=== PATIENT | female | born 1990 | race Caucasian/White ===

== ENCOUNTER 2019-06-30 09:18 | Day surgery (SDC) | payer MEDICARE, OTHER ==
[~2019-06-30] VITALS: Ht 152.4 cm; Wt 75.0 kg
[~2019-06-30 09:18] MED LIST: ALBU2.5V5 NEB; ALBU2.5V8 INH; AMOX1TAB61 PO; ARIP20TA5 PO; ASEN5TAB7 SL; ASPI325T8 PO; AZIT500T PO; CALC667C6 PO; CARV12.511 PO; CYCL10TA2 PO; DILT240C32 PO; DILT240C66 PO; DOCU-109 PO; ERYT250T16 PO; ESCITALOPRAM OX10 MG PO; ESCITALOPRAM OX20 MG PO; FERR325T58 PO; FEXO180T81 PO; FLUT1DIS3 IH; FURO80TA72 PO; Fish Oil PO; GABA300C18 PO; HYDR-2145 PO; HYDR-2868 PO; HYDR-2869 PO; HYDROmorphone 2 MG/ML VIAL IV PRN; Humalog; INSU100C4 SQ; INSU100I13 SQ; INSU100V3 SQ; IV RINGERS,LACTATED 1000ML 1,000 ML IV SCH; LABE100T5 PO; LAMO100T5 PO; LAMO100T8 PO; LAMO200T3 PO; LIDO700A4 TP; LIDOCAINE 1% PF 2 ML VIAL. ID PRN; LURA80TA PO; METO10TA PO; METO5TAB4 PO; MORPHINE SULFATE 2 MG/ML VIAL. IV PRN; MULT-206 PO; NORG1TAB39 PO; NORG1TAB7 PO; OMEG300C PO; ONDA4TAB7 PO; ONDANSETRON PF 4 MG/2 ML VIAL. IV PRN; OXYC1TAB15 PO; OXYC20TA34 PO; POLY17PO29 PO; PROCHLORPERAZINE 10 MG/2 ML VIAL. IV PRN; SCOP1PAT11 TD; SODI650T PO; TRAM50TA PO; TRAZ-86 PO; VALS320T13 PO; VITA0.8T2 PO; [UNRECOGNIZED DRUG - OTHER]; fentaNYL PF VIAL 100 MCG/2 ML VIAL IV PRN
[2019-06-30] MEDS ORDERED: ceFAZolin 2GM PREMIX 2 GM/50 ML BAG IV ONE (10:00)
[2019-06-30] MEDS ORDERED: LIDOCAINE 2% PF 5 ML VIAL. ONE (10:03)
[2019-06-30] MEDS ORDERED: ROCURONIUM 50 MG/5 ML VIAL. ONE (10:03)
[2019-06-30] MEDS ORDERED: DEXAMETHASONE SOD PHOS 4 MG/ML VIAL ONE ×2 (10:03→11:50)
[2019-06-30] MEDS ORDERED: PROPOFOL 20 ML IV ONE (10:03)
[2019-06-30] MEDS ORDERED: ONDANSETRON PF 4 MG/2 ML VIAL. ONE (10:03)
[2019-06-30] MEDS ORDERED: fentaNYL PF VIAL 100 MCG/2 ML VIAL ONE ×3 (10:03→12:33)
[2019-06-30] MEDS ORDERED: MIDAZOLAM HCL/PF 2 MG/2 ML VIAL. ONE (10:04)
[2019-06-30 10:30] LABS: CALCIUM 7.7 mg/dL (8.5-10.1); CREATININE 3.7 mg/dL (0.6-1.0); GFR 14.4; POTASSIUM 4.7 mmol/L (3.5-5.1)
[2019-06-30] MEDS ORDERED: IV NORMAL SALINE 1000ML BAG 1,000 ML IV SCH (10:30)
[2019-06-30] MEDS ORDERED: HEPARIN PF 500 UNIT/5 ML DISP.SYRIN. ONE (10:32)
[2019-06-30] MEDS ORDERED: HEPARIN for IV BOLUS 10,000 UNIT/10 ML VIAL. ONE (10:33)
[2019-06-30] MEDS ORDERED: NEOSTIGMINE METHYLSULFATE 5 MG/5 ML SYRINGE. ONE (11:46)
[2019-06-30] MEDS ORDERED: GLYCOPYRROLATE 1 MG/5 ML VIAL. ONE (11:46)
[2019-06-30] MEDS ORDERED: DESFLURANE 61 TO 120 MINUTES IH ONE (11:50)
--- NOTE | 2019-06-30 12:27 | PDOC4 ---
Operative Note Operative Note OPERATIVE NOTE: PREOPERATIVE DIAGNOSIS: Renal failure. POSTOPERATIVE DIAGNOSIS: Renal failure. PROCEDURE: Laparoscopic peritoneal dialysis catheter placement. SURGEON: Renny Espinal MD ANGLE ROLL OPERATOR: Nida DURAN ANESTHESIA: General. ESTIMATED BLOOD LOSS: 10 mL. SPECIMENS: None. DRAINS: None. COMPLICATIONS: None. INDICATIONS: The patient is a 29-year-old female who was referred for placement of a peritoneal dialysis catheter due to progressive renal failure. The details and risks of surgery were discussed with the patient. The risks of surgery include bleeding, infection, visceral injury, pain, anesthetic risk, potential need for additional surgery or procedure. In addition, the patient is aware of the potential for catheter malfunction or dysfunction and possibility of needing revision, replacement, or removal of the catheter. They understand all this and would like to proceed. DESCRIPTION OF PROCEDURE: The patient was brought to the operating room and placed supine on the operating table. General anesthesia was performed. The abdomen was prepped with ChloraPrep and draped in a standard surgical manner. A small incision was made in the patient's right upper quadrant through which a visualized 5-mm trocar was inserted. A pneumoperitoneum was then created and the laparoscope was introduced. Initial inspection showed no significant adhesions or any other gross abnormalities. Using the placement template, the left abdomen was marked with a planned catheter exit site in the left abdomen. A small incision was made to the left of the patient's midline at the marked location for the exit site of the cuff. An 8-mm trocar was inserted through this location. The coiled portion of the lower catheter was then inserted into the pelvis under direct visualization. The cuff was positioned in the rectus musculature. The coiled portion rested well in the inferior mid pelvis. The pneumoperitoneum was then relieved. An incision was then made in the left abdomen at the planned exit site. The proximal portion of the catheter was tunnelled subcutaneously to the exit site. The catheter was then assembled to IV tubing and tested by infusing a liter of saline. The saline passed easily into the abdomen and the bag was placed on the floor. Nearly all of the saline readily was retrieved with prompt flow. The abdominal cavity was then reinsufflated and the laparoscope was reintroduced showing no change in the catheter position and the cuff remained in the rectus. The pneumoperitoneum was relieved and the ports were removed. The catheter was then assembled to the connector tubing as per the dialysis instructions. All the incision sites were closed with 4-0 Monocryl. Steri-Strips and sterile dressing were then applied. The patient tolerated procedure well and was sent to the recovery room in stable condition. At the end of the case all counts were correct. RENNY ESPINAL MD Jun 30, 2019 12:27
--- NOTE | 2019-06-30 12:30 | DISCH ---
DISCHARGE INSTRUCTIONS Condition on Discharge Condition on Discharge: Stable Activity After Discharge Activity Instructions for Disc: Other, see below (No lifting over 20 lbs X 2 weeks) Diet after Discharge Diet after Discharge: Regular Wound Incision Care Wound/Incision Care: Other, see below (keep dressing clean and dry) Follow-Up Follow up with: Follow with dialysis center NESTOR ESPINAL MD Jun 30, 2019 12:29
[2019-06-30] MEDS: fentaNYL PF VIAL 100 MCG/2 ML VIAL IV PRN ×2 (12:37→12:45)
[2019-06-30] MEDS ORDERED: HYDR-3164 PO (12:57)
[2019-06-30 13:10] VITALS: BP 148/75
[2019-06-30] MEDS ORDERED: HYDROcodone/APAP 5/325MG 1 TAB TABLET PO ONE (13:15)
[2019-06-30] MEDS ORDERED: INSULIN LISPRO 100 UNIT/ML 3ML VIAL for OP,RR ONLY. SQ PRN (13:15)
[2019-06-30] MEDS ORDERED: HEPARIN PF 500 UNIT/5 ML DISP.SYRIN. IVP ONE (13:45)
== END 2019-06-30 14:00 | disposition home or self-care (01) ==
LOC: SURG 09:18
PROVIDERS: ATTEND Surgery
DX: I12.0 Hypertensive chronic kidney disease with stage 5 chronic kidney disease or end stage renal disease (principal); E11.22 Type 2 diabetes mellitus with diabetic chronic kidney disease; N18.6 End stage renal disease; J45.909 Unspecified asthma, uncomplicated; F31.9 Bipolar disorder, unspecified; Z90.49 Acquired absence of other specified parts of digestive tract; Z79.84 Long term (current) use of oral hypoglycemic drugs; Z90.710 Acquired absence of both cervix and uterus; Z98.890 Other specified postprocedural states
CPT/HCPCS: 36415; 49324; 80048; 82962; A7015; J0696; J1100; J1644; J2001; J2405; J2704; J2710; J3010; J3490; J7120; J2250

== ENCOUNTER → 2020-03-19 | Outpatient (CLI) | payer MEDICARE, OTHER ==
[2019-07-03 12:11] VITALS: BP 147/67
[~2020-03-19] MED LIST changes: +CRESTOR40 MG PO; +HYDR-3164 PO; -HYDROmorphone 2 MG/ML VIAL IV PRN; -IV RINGERS,LACTATED 1000ML 1,000 ML IV SCH; -LIDOCAINE 1% PF 2 ML VIAL. ID PRN; -MORPHINE SULFATE 2 MG/ML VIAL. IV PRN; +MULT-121 PO; +OLAN7.5T3 PO; -ONDANSETRON PF 4 MG/2 ML VIAL. IV PRN; -PROCHLORPERAZINE 10 MG/2 ML VIAL. IV PRN; +TRAZ-123 PO; -TRAZ-86 PO; -fentaNYL PF VIAL 100 MCG/2 ML VIAL IV PRN
== END ==
LOC: LAB 08:30
PROVIDERS: ATTEND Surgery
DX: Z01.812 Encounter for preprocedural laboratory examination (principal); Z20.828 Contact with and (suspected) exposure to other viral communicable diseases
CPT/HCPCS: U0003-CS

== ENCOUNTER 2020-03-22 08:59 | Day surgery (SDC) | payer MEDICARE, OTHER ==
[~2020-03-22] VITALS: Ht 157.5 cm; Wt 72.5 kg
[~2020-03-22 08:59] MED LIST changes: +DEXAMETHASONE SOD PHOS 4 MG/ML VIAL ONE; +HYDROmorphone 2 MG/ML VIAL IV PRN; +INSULIN LISPRO 100 UNIT/ML 3ML VIAL for OP,RR ONLY. SQ PRN; +LIDOCAINE 1% PF 2 ML VIAL. ID PRN; +LIDOCAINE 2% PF 5 ML VIAL. ONE; +MORPHINE SULFATE 2 MG/ML VIAL. IV PRN; +ONDANSETRON PF 4 MG/2 ML VIAL. IV PRN; +ONDANSETRON PF 4 MG/2 ML VIAL. ONE; +PROCHLORPERAZINE 10 MG/2 ML VIAL. IV PRN; +PROPOFOL 10 MG/ML (20ML) VIAL. IV ONE; +fentaNYL PF VIAL 100 MCG/2 ML VIAL IV PRN; +fentaNYL PF VIAL 100 MCG/2 ML VIAL ONE
[2020-03-22] MEDS ORDERED: IV NORMAL SALINE 1000ML BAG 1,000 ML IV SCH ×2 (09:00→10:00)
[2020-03-22 10:37] LABS: CREATININE 6.6 mg/dL (0.6-1.0); GFR 7.3
[2020-03-22 10:47] LABS: CALCIUM 5.8 mg/dL (8.5-10.1); POTASSIUM 2.6 mmol/L (3.5-5.1)
[2020-03-22] MEDS ORDERED: LIDOCAINE 1%/EPI 1:100,000 20 ML VIAL. ONE (11:15)
[2020-03-22] MEDS ORDERED: POTASSIUM CHLORIDE 20MEQ 100 ML IV SCH (11:15)
[2020-03-22] MEDS ORDERED: MIDAZOLAM HCL/PF 2 MG/2 ML VIAL. ONE (12:17)
--- NOTE | 2020-03-22 12:43 | PDOC4 ---
Operative Note Operative Note Operative Note: Preoperative Diagnosis: Right abdominal wall nodule Postoperative Diagnosis: Same Procedure: Excision of right abdominal wall nodule, 2 X 1 cm Surgeon: Murphy Model And Pattern Supervisor: Ev DURAN Anesthesia: General EBL: 10 mL Specimen: Abdominal wall nodule to pathology Drains: None Complications: None Indication: The patient is a 30-year-old female who was referred due to abdominal pain. Evaluation does identify a small subcutaneous nodule in the right abdominal wall. Clinically most consistent with fatty necrosis. She states that it is symptomatic and requests excision. The details and risks of surgery were discussed. The risks include bleeding, infection, recurrence, pain, anesthetic risk, potential need for additional surgery procedure. She understands and would like to proceed. Description: The patient was taken the operating room and placed supine on the operating table. General anesthesia was performed. The right abdomen was prepped with ChloraPrep and draped in a standard surgical manner. An incision was made in the skin overlying the mass with a scalpel. Cautery dissection was carried down into the subcutaneous tissues. The nodule was readily identified and mobilized from the surrounding fat with cautery. The mass was fully excised and measured 2 x 1 cm. The mass was sent to pathology for evaluation. Hemostasis was achieved with cautery. The subcutaneous tissue was closed with 3-0 Vicryl and skin approximated with 4-0 Monocryl. A sterile dressing was applied. The patient tolerated the procedure well and sent to the covering room in stable condition. At the end the case all counts were correct. NESTOR ESPINAL MD Mar 22, 2020 12:43
--- NOTE | 2020-03-22 12:46 | DISCH ---
DISCHARGE INSTRUCTIONS Condition on Discharge Condition on Discharge: Stable Activity After Discharge Activity Instructions for Disc: Activity as tolerated Diet after Discharge Diet after Discharge: Renal Dialysis Wound Incision Care Wound/Incision Care: Other, see below (keep dressing clean and dry X 72 hours, may then remove and shower) Follow-Up Follow up with: Dr Espinal in office in 2 weeks, call for appt [phone] NESTOR ESPINAL MD Mar 22, 2020 12:46
[2020-03-22 13:45] VITALS: BP 11/73
[2020-03-22] MEDS ORDERED: HYDR-3164 PO (14:00)
[2020-03-22] MEDS ORDERED: HYDROcodone/APAP 5/325MG 1 TAB TABLET PO ONE (14:15)
[2020-03-22] MEDS ORDERED: HEPARIN PF 500 UNIT/5 ML DISP.SYRIN. IVP ONE (14:15)
--- NOTE | 2020-03-23 15:07 | PATHOLOGY ---
[facility] Accession Number: [id number] . 01 Material submitted: . abdomen - ABDOMINAL WALL NODULE. Modifiers: wall . 01 Clinical history: . ABDOMINAL WALL MASS . 02 Diagnosis: Fibroadipose tissue, abdominal wall nodule excision: - Organizing hematoma, with adjacent fat necrosis. (JPM:alessandra 03/23/2020) QMS 03/23/2020 1400 Local . 02 Comment: There is no evidence of malignancy. (JPM:alessandra; 03/23/2020) . 02 Electronically signed: . Roni Alan MD, Pathologist NPI- [id number] . 01 Gross description: . The specimen is received in formalin, labeled "Shaun Blockburger, abdominal wall nodule". Received is a segment of shaggy yellow-briscoe lobulated tissue measuring 3.8 x 2.5 x 1.1 cm in greatest dimensions. The surgical margin is inked. Sectioning reveals a cystic structure measuring 0.8 cm in maximum dimensions filled with blood-tinged fluid. The remaining cut surfaces display a bright yellow, lobulated appearance. The entire cystic structure submitted in cassette A1. Additional outside sales representative sections are submitted in cassette A2. (CAA; 03/22/2020) QAC/QAC 03/22/2020 1736 Local . 02 Pathologist provided ICD-10: R19.09 . 02 CPT . 446665 Specimen Comment: A courtesy copy of this report has been sent to [phone] Specimen Comment: [id number] Specimen Comment: Report sent to / DR CHEN Performed at: [address], [place], [place] [id number] MD Nazario Mota MD Phone: [phone] Performed at: 02 [facility] [address] [place] [id number] MD Roni Alan MD Phone: [phone]
== END 2020-03-22 14:40 | disposition home or self-care (01) ==
LOC: SURG 08:59
PROVIDERS: ATTEND Surgery
DX: R19.00 Intra-abdominal and pelvic swelling, mass and lump, unspecified site (principal); Z88.8 Allergy status to other drugs, medicaments and biological substances; Z87.891 Personal history of nicotine dependence; Z79.899 Other long term (current) drug therapy
CPT/HCPCS: 22902; 36415; 80048; 82962; 84132; A7015; J0690; J1100; J1642; J2250; J2405; J2704; J3010; J3480; J3490

== ENCOUNTER 2020-08-09 12:32 | Inpatient (IN) | payer MEDICARE, OTHER ==
[~2020-08-09] VITALS: Ht 154.9 cm; Wt 72.0 kg
[~2020-08-09 12:32] MED LIST changes: +AMIT50TA PO; +ASCO500C PO; +CHOL500050 PO; +CLON0.5T4 PO; -DEXAMETHASONE SOD PHOS 4 MG/ML VIAL ONE; +DULO60CA6 PO; -ERYT250T16 PO; +ERYT250T84 PO; -HYDROmorphone 2 MG/ML VIAL IV PRN; -INSULIN LISPRO 100 UNIT/ML 3ML VIAL for OP,RR ONLY. SQ PRN; +LAMO25TA5 PO; -LIDOCAINE 1% PF 2 ML VIAL. ID PRN; -LIDOCAINE 2% PF 5 ML VIAL. ONE; +LINA5TAB PO; +METO-239 PO; +METO25TA4 PO; +MIDO5TAB4 PO; +MILK175T PO; -MORPHINE SULFATE 2 MG/ML VIAL. IV PRN; -ONDANSETRON PF 4 MG/2 ML VIAL. IV PRN; -ONDANSETRON PF 4 MG/2 ML VIAL. ONE; +OXYC5CAP PO; +PANT40TA77 PO; +POTA20TA4 PO; +PROC25SU RC; -PROCHLORPERAZINE 10 MG/2 ML VIAL. IV PRN; -PROPOFOL 10 MG/ML (20ML) VIAL. IV ONE; +THIA100T22 PO; +TURM538C PO; +ZINC50TA10 PO; -fentaNYL PF VIAL 100 MCG/2 ML VIAL IV PRN; -fentaNYL PF VIAL 100 MCG/2 ML VIAL ONE
[2020-08-09] MEDS ORDERED: IV NORMAL SALINE 1000ML BAG 1,000 ML IV ONE (14:00)
--- NOTE | 2020-08-09 14:17 | RAD ---
INDICATION: Reason: CHEST PAIN ucg first 1:55 er 6 / Spl. Instructions: / History: COMPARISON: June 19, 2020 FINDINGS: Single view of chest obtained. Hypoexpanded exam. Cardiac silhouette is near the upper limits of normal in size. Linear opacity agai n seen at the left lung base without a new region of consolidation IMPRESSION: * Linear opacity at left lung base again seen and can be from atelectasis or scarring. No new region of consolidation. Electronically signed by: Harmeet Bustillo MD (08/09/2020 2:15 PM) [id number]
[2020-08-09 14:31] LABS: BASO % 0 % (0-3); EOS % 0 % (0-3); HEMATOCRIT 35.2 % (36.0-47.0); HEMOGLOBIN 11.6 g/dL (12.0-15.5); LYMPH % 9 % (24-48); MEAN CORPUSCULAR HEMOGLOBIN 30 pg (25-35); MEAN CORPUSCULAR HGB CONC 33 g/dL (31-37); MEAN CORPUSCULAR VOLUME 90 fL (79-100); MONO # 0.5 x10^3/uL (0.0-1.1); MONO % 5 % (0-9); NEUT # 9.7 x10^3/uL (1.8-7.7); NEUT % 86 % (31-73); PLATELET COUNT 278 x10^3/uL (140-400); RED CELL DISTRIBUTION WIDTH 14.6 % (11.5-14.5); WHITE BLOOD COUNT 11.3 x10^3/uL (4.0-11.0)
[2020-08-09 14:42] LABS: CALCIUM 6.9 mg/dL (8.5-10.1); CREATININE 12.3 mg/dL (0.6-1.0); GFR 3.6; POTASSIUM 4.3 mmol/L (3.5-5.1)
[2020-08-09 14:49] LABS: ALBUMIN 1.8 g/dL (3.4-5.0); ALBUMIN/GLOBULIN RATIO 0.4 (1.0-1.7); MAGNESIUM 2.5 mg/dL (1.8-2.4); TOTAL BILIRUBIN 0.4 mg/dL (0.2-1.0); TOTAL PROTEIN 6.2 g/dL (6.4-8.2)
[2020-08-09] MEDS ORDERED: CALCIUM CHLORIDE 1,000 MG/10 ML DISP.SYRIN IV ONE (15:00)
--- NOTE | 2020-08-09 15:27 | PHYS DOC ---
Past Medical History Past Medical History: Renal Failure Additional Past Medical Histor: ESRD,GASTROPARESIS Past Surgical History: Other Additional Past Surgical Histo: peritoneal dialysis sx Smoking Status: Former Smoker Alcohol Use: None Drug Use: None General Adult EDM: Chief Complaint: CHEST WALL PAIN HPI: HPI: Patient is a 30 year old female with history of end-stage renal failure on hemodialysis every night, diabetic, presented to ER for evaluation of chest pain and trouble breathing since this morning. Patient described the pain as subster nal radiates to her back, denies any fever. Patient had COVID-19 infection 1 month ago. Patient states she tested for Covid again last week and it came back negative. Review of Systems: Review of Systems: Constitutional: Denies fever or chills. [] Eyes: Denies change in visual acuity. [] HENT: Denies nasal congestion or sore throat. [] Respiratory: Denies cough, positive for shortness of breath. [] Cardiovascular: Positive for chest pain, no edema GI: Denies abdominal pain, nausea, vomiting, bloody stools or diarrhea. [] : Denies dysuria. [] Musculoskeletal: Denies back pain or joint pain. [] Integument: Denies rash. [] Neurologic: Denies headache, focal weakness or sensory changes. [] Endocrine: Denies polyuria or polydipsia. [] Lymphatic: Denies swollen glands. [] Psychiatric: Denies depression or anxiety. [] Heart Score: Risk Factors: Risk Factors: DM, Current or recent (<one month) smoker, HTN, HLP, family history of CAD, obesity. Risk Scores: Score 0 - 3: 2.5% MACE over next 6 weeks - Discharge Home Score 4 - 6: 20.3% MACE over next 6 weeks - Admit for Clinical Observation Score 7 - 10: 72.7% MACE over next 6 weeks - Early Invasive Strategies Current Medications: Current Medications Medications (Trade) Dose Ordered Sig/Liana Start Time Stop Time Status Last Admin Dose Admin Calcium Chloride (Calcium Chloride) 1,000 mg 1X ONCE 08/09/20 15:00 08/09/20 15:01 DC 08/09/20 15:14 1,000 MG Ondansetron HCl (Zofran) 4 mg 1X ONCE 08/09/20 15:30 08/09/20 15:31 UNV Sodium Chloride 1,000 ml @ 1,000 mls/hr 1X ONCE 08/09/20 14:00 08/09/20 14:59 DC 08/09/20 14:25 1,000 MLS/HR Allergies: Allergies: Allergies Coded Allergies Type Severity Reaction Last Updated Verified lurasidone Allergy Severe 06/30/19 Yes zolpidem Allergy Intermediate BLISTERS AND HIVES 03/19/20 Yes adhesive tape Adverse Reaction Intermediate Rash 03/19/20 Yes Physical Exam: PE: Constitutional: Well developed, well nourished, no acute distress, non-toxic appearance. [] HENT: Normocephalic, atraumatic, bilateral external ears normal, oropharynx moist, no oral exudates, nose normal. [] Eyes: PERRLA, EOMI, conjunctiva normal, no discharge. [] Neck: Normal range of motion, no tenderness, supple, no stridor. [] Cardiovascular: Sinus tachycardia ,heart rate regular rhythm, no murmur. Chest pain is reproducible to palpation substernally Lungs & Thorax: Bilateral breath sounds clear to auscultation [] Abdomen: Bowel sounds normal, soft, no tenderness, no masses, no pulsatile mas ses. [] Skin: Warm, dry, no erythema, no rash. [] Back: No tenderness, no CVA tenderness. [] Extremities: No tenderness, no cyanosis, no clubbing, ROM intact, no edema. AV fistula on the left arm Neurologic: Alert and oriented X 3, normal motor function, normal sensory function, no focal deficits noted. [] Psychologic: Affect normal, judgement normal, mood normal. [] Current Patient Data: Labs: Laboratory Tests Test 08/09/20 14:11 White Blood Count 11.3 x10^3/uL (4.0-11.0) H Red Blood Count 3.90 x10^6/uL (3.50-5.40) Hemoglobin 11.6 g/dL (12.0-15.5) L Hematocrit 35.2 % (36.0-47.0) L Mean Corpuscular Volume 90 fL (79-100) Mean Corpuscular Hemoglobin 30 pg (25-35) Mean Corpuscular Hemoglobin Concent 33 g/dL (31-37) Red Cell Distribution Width 14.6 % (11.5-14.5) H Platelet Count 278 x10^3/uL (140-400) Neutrophils (%) (Auto) 86 % (31-73) H Lymphocytes (%) (Auto) 9 % (24-48) L Monocytes (%) (Auto) 5 % (0-9) Eosinophils (%) (Auto) 0 % (0-3) Basophils (%) (Auto) 0 % (0-3) Neutrophils # (Auto) 9.7 x10^3/uL (1.8-7.7) H Lymphocytes # (Auto) 1.0 x10^3/uL (1.0-4.8) Monocytes # (Auto) 0.5 x10^3/uL (0.0-1.1) Eosinophils # (Auto) 0.0 x10^3/uL (0.0-0.7) Basophils # (Auto) 0.0 x10^3/uL (0.0-0.2) Platelet Estimate Pending Sodium Level 133 mmol/L (136-145) L Potassium Level 4.3 mmol/L (3.5-5.1) Chloride Level 94 mmol/L (98-107) L Carbon Dioxide Level 23 mmol/L (21-32) Anion Gap 16 (6-14) H Blood Urea Nitrogen 51 mg/dL (7-20) H Creatinine 12.3 mg/dL (0.6-1.0) H Estimated GFR (Cockcroft-Gault) 3.6 BUN/Creatinine Ratio 4 (6-20) L Glucose Level 319 mg/dL (70-99) H Calcium Level 6.9 mg/dL (8.5-10.1) L Magnesium Level 2.5 mg/dL (1.8-2.4) H Total Bilirubin 0.4 mg/dL (0.2-1.0) Aspartate Amino Transferase (AST) 14 U/L (15-37) L Alanine Aminotransferase (ALT) 30 U/L (14-59) Alkaline Phosphatase 142 U/L (46-116) H Troponin I Quantitative < 0.017 ng/mL (0.000-0.055) PK-Txp-G-Type Natriuretic Peptide 3609 pg/mL (0-124) H Total Protein 6.2 g/dL (6.4-8.2) L Albumin 1.8 g/dL (3.4-5.0) L Albumin/Globulin Ratio 0.4 (1.0-1.7) L Lipase 125 U/L (73-393) Acetone Level Neg (NEG) Laboratory Tests 08/09/20 14:11 Laboratory Tests 08/09/20 14:11 Vital Signs: Vital Signs Date Time Temp Pulse Resp B/P (MAP) Pulse Ox O2 Delivery O2 Flow Rate FiO2 08/09/20 13:25 98.3 130 16 103/58 (73) 98 Room Air 98.3 EKG: EKG: EKG was done at 1235, heart rate 128 beats per minute, sinus tachycardia, no ST segment elevation. Radiology/Procedures: Radiology/Procedures: [][facility] [address] [place] [address] IMAGING REPORT Signed PATIENT: LUCHO JORDAN CACCOUNT: [id number] : 1990 LOCATION: ER AGE: 30 SEX: F EXAM STATUS: REG ER ORD. PHYSICIAN: NORIS MANJARREZ DO REASON: chest pain, SOA, covid-19 infection 1 month ago PROCEDURE: CT ANGIOGRAPHY CHEST CTA chest dated 08/09/2020. No comparison available. CLINICAL INDICATION: Chest pain and shortness of breath. Covid 19. TECHNIQUE: Contiguous axial imaging the chest performed following the intravenous administration of 75 cc Omnipaque 350. Study was performed as dedicated PE protocol. Thin cut coronal MIPS 3-D reconstruction. One or more of the following individualized dose reduction techniques were utilized for this examination: 1. Automated exposure control 2. Adjustment of the mA and/or kV according to patient size 3. Use of iterative reconstruction technique. FINDINGS: Contrast bolus is adequate. No evidence of central, lobar or segmental pulmonary embolus. Subsegmental branches are not well evaluated based on technique. Evaluation of the ascending aorta is limited due to motion artifact. Heart size is upper limits of normal. No pericardial effusion. No mediastinal, hilar or axillary lymphadenopathy. Thyroid gland is unremarkable. Central airways are patent. There is some patchy groundglass opacity throughout both lungs, basilar predominant. No pleural effusion. No pneumothorax. Images of the upper abdomen show small amount of ascites. There are some wedge shaped defects within the spleen that are of uncertain etiology. Evidence of prior gastric bypass. Gallbladder surgically absent. Bone windows show no acute findings. Multilevel spondylosis. IMPRESSION: 1. No evidence of central, lobar or segmental pulmonary embolus. 2. There are some wedge-shaped defect within the spleen that are suspicious for small splenic infarcts. 3. The ascending aorta is not well evaluated due to motion artifact. There is no significant aneurysm or pericardial effusion. 4. Patchy groundglass opacity throughout both lungs, nonspecific but possibly related to early Covid 19 pneumonitis. 5. Small amount of ascites. Electronically signed by: Vincent Martin MD (08/09/2020 4:13 PM) [id number] DICTATED and SIGNED BY: VINCENT MARTIN MD DATE: 08/09/20 [id number] [facility] [address] [place] [address] IMAGING REPORT Signed PATIENT: LUCHO JORDAN CACCOUNT: [id number] : 1990 LOCATION: ER AGE: 30 SEX: F EXAM STATUS: REG ER ORD. PHYSICIAN: NORIS MANJARREZ DO REASON: CHEST PAIN ucg first 1:55 er 6 PROCEDURE: CHEST AP ONLY INDICATION: Reason: CHEST PAIN ucg first 1:55 er 6 / Spl. Instructions: / History: COMPARISON: June 19, 2020 FINDINGS: Single view of chest obtained. Hypoexpanded exam. Cardiac silhouette is near the upper limits of normal in size. Linear opacity again seen at the left lung base without a new region of consolidation IMPRESSION: * Linear opacity at left lung base again seen and can be from atelectasis or scarring. No new region of consolidation. Electronically signed by: Binh Troy MD (08/09/2020 2:15 PM) [id number] DICTATED and SIGNED BY: BINH TROY MD DATE: 08/09/20 [id number] 0 Course & Med Decision Making: Course & Med Decision Making Pertinent Labs and Imaging studies reviewed. (See chart for details) [] Dragon Disclaimer: Dragon Disclaimer: This electronic medical record was generated, in whole or in part, using a voice recognition dictation system. Departure Departure Impression: Primary Impression: Chest pain Additional Impressions: Hyperglycemia ESRD (end stage renal disease) Splenic infarction Disposition: 09 ADMITTED INPT THIS HOSP Admitting Physician: OTONIEL (Dr. Galloway) Condition: STABLE Referrals: ROOSEVELT CHEN (PCP) NORIS MANJARREZ DO Aug 09, 2020 15:27
[2020-08-09] MEDS ORDERED: ONDANSETRON PF 4 MG/2 ML VIAL. IVP ONE (15:30)
[2020-08-09 15:34] LABS: BASE EXCESS ABG -8 mmol/L (-3-3); FIO2 ABG 21; HCO3 ABG 17 mmol/L (21-28); PCO2 ABG 32 mmHg (35-46); PO2 ABG 88 mmHg (85-108); SAT O2 ABG 95 % (92-99)
[2020-08-09 15:38] LABS: % BANDS 1 % (0-9); % LYMPHS 11 % (24-48); % METAS 1 % (0-0); % MONOS 3 % (0-10); % SEGS 84 % (35-66); PLT ESTIMATE ADEQUATE (ADEQUATE)
[2020-08-09] MEDS ORDERED: CONTRAST GIVEN. MC PRN (15:45)
[2020-08-09] MEDS ORDERED: IOHEXOL 350 MG/ML 100 ML VIAL. IV ONE (15:45)
--- NOTE | 2020-08-09 16:15 | RAD ---
CTA chest dated 08/09/2020. No comparison available. CLINICAL INDICATION: Chest pain and shortness of breath. Covid 19. TECHNIQUE: Contiguous axial imaging the chest performed following the intravenous administration of 75 cc Omnipa que 350. Study was performed as dedicated PE protocol. Thin cut coronal MIPS 3-D reconstruction. One or more of the following individualized dose reduction techniques were utilized for this examinat ion: 1. Automated exposure control 2. Adjustment of the mA and/or kV according to patient size 3. Use of iterative reconstruction technique. FINDINGS: Contrast bolus is adequate. No evidence of central, lobar or segmental pulmonary embolus. Subsegmenta l branches are not well evaluated based on technique. Evaluation of the ascending aorta is limited du e to motion artifact. Heart size is upper limits of normal. No pericardial effusion. No mediastinal, hilar or axillary lymp hadenopathy. Thyroid gland is unremarkable. Central airways are patent. There is some patchy groundglass opacity throughout both lungs, basilar p redominant. No pleural effusion. No pneumothorax. Images of the upper abdomen show small amount of ascites. There are some wedge shaped defects within the spleen that are of uncertain etiology. Evidence of prior gastric bypass. Gallbladder surgically a bsent. Bone windows show no acute findings. Multilevel spondylosis. IMPRESSION: 1. No evidence of central, lobar or segmental pulmonary embolus. 2. There are some wedge-shaped defect within the spleen that are suspicious for small splenic infarct s. 3. The ascending aorta is not well evaluated due to motion artifact. There is no significant aneurysm or pericardial effusion. 4. Patchy groundglass opacity throughout both lungs, nonspecific but possibly related to early Covid 19 pneumonitis. 5. Small amount of ascites. Electronically signed by: Vincent Martin MD (08/09/2020 4:13 PM) [id number]
[2020-08-09] MEDS ORDERED: METOCLOPRAMIDE HCL 10 MG/2 ML VIAL. IVP ONE (16:30)
[2020-08-09] MEDS ORDERED: MORPHINE SULFATE 4 MG/ML VIAL. IV ONE (16:30)
[2020-08-09] MEDS ORDERED: MIDODRINE 5 MG TABLET PO STA (17:03)
--- NOTE | 2020-08-09 17:32 | PDOC1 ---
History and Physical Date of Admission Date of Admission DATE: 08/09/20 TIME: 17:26 Identification/Chief Complaint Chief Complaint Chest pain Source Source: Patient History of Present Illness History of Present Illness Ms Arteaga is a 30 yo F w/ PMHx gastroparesis, uncontrolled DM2, narcotic dependency, end-stage renal disease on PD, bipolar MDD, chronic pain, PFO, PIZARRO, anemia, asthma, morbid obesity s/p clive-en-y gastric bypass in 2018, port-a-cath in place who presented to the ER with weakness and chest pain. She c/o weakness and nausea with shortness of breath. Patient states she has not been eating or drinking very well. Patient denies vomiting, chest pain, shortness of air, dizziness, headache, diarrhea, vision changes, numbness or tingling, focal weakness. She notes substernal chest pain and trouble breathing since 08/09/20 in the morning. Patient described the pain as substernal radiates to her back and describes it as an elephant sitting on her chest. She notes on further review this has been progressively worsening over the past 6 weeks. She tell me she thinks this is due to COVID 19 She has been admitted to the hospital multiple times over the past few months, the end of May was for COVID 19 treatment (she had been hospitalized in May twice prior for falls and confusion). After COVID 19 treatment she notes she was hospitalized for at least [address] [facility] for respiratory distress and has also been to [facility] ([facility] She notes she had an EGD there very recently after c/o chest pain, she does not recall the day this was performed, but notes no anastomic ulcer was reported and she was started on scopolamine patch and elavil qhs for her pain and nausea. EKG appears Sinus Rhythm and no STEMI Chest radiograph with possible linear scarring at left base, poor inspiration. Due to her pain radiating to her back a CTPA was performed with no evidence of central, lobar or segmental pulmonary embolus, wedge-shaped defect within the spleen consistent with splenic infarcts, small ascites and patchy groundglass opacity throughout both lungs. ABG with pH 7.34, PCO2 32, PO2 88. Troponin 0, WBC 11.3, Hb 11.6, platelets 278, NA 133, K4.3, BUN 51, CR 12.3, glucose 319, BNP 3609, albumin 1.8, calcium 6.9. Admitted for further treatment. Past Medical History Cardiovascular: HTN, Hyperlipidemia Pulmonary: Asthma, Other CENTRAL NERVOUS SYSTEM: Periperal neuropathy, Seizure GI: Other Heme/Onc: Anemia NOS, Other Hepatobiliary: Cholelithiasis, Other Psych: Anxiety, Depression Musculoskeletal: Osteoarthritis Rheumatologic: No pertinent hx Infectious disease: No pertinent hx Renal/: Chronic renal failure, UTI Endocrine: Diabetes Past Surgical History Past Surgical History: Cholecystectomy, Hysterectomy, Other Family History Family History: Hypertension Social History Smoke: No ALCOHOL: none Drugs: None Current Problem List Problem List Problems Medical Problems: (1) Chest pain Status: Acute (2) ESRD (end stage renal disease) Status: Acute (3) Hyperglycemia Status: Acute (4) Splenic infarction Status: Acute Current Medications Current Medications Current Medications Sodium Chloride 1,000 ml @ 1,000 mls/hr 1X ONCE IV Last administered on 08/09/20at 14:25; Start 08/09/20 at 14:00; Stop 08/09/20 at 14:59; Status DC Calcium Chloride (Calcium Chloride) 1,000 mg 1X ONCE IV Last administered on 08/09/20at 15:14; Start 08/09/20 at 15:00; Stop 08/09/20 at 15:01; Status DC Ondansetron HCl (Zofran) 4 mg 1X ONCE IVP Last administered on 08/09/20at 15:25; Start 08/09/20 at 15:30; Stop 08/09/20 at 15:31; Status DC Iohexol (Omnipaque 350 Mg/ml) 75 ml 1X ONCE IV Last administered on 08/09/20at 16:01; Start 08/09/20 at 15:45; Stop 08/09/20 at 15:46; Status DC Info (CONTRAST GIVEN -- Rx MONITORING) 1 each PRN DAILY PRN MC SEE COMMENTS; Start 08/09/20 at 15:45; Stop 08/11/20 at 15:44 Morphine Sulfate (Morphine Sulfate) 4 mg 1X ONCE IV ; Start 08/09/20 at 16:30; Stop 08/09/20 at 16:33; Status DC Metoclopramide HCl (Reglan Vial) 10 mg 1X ONCE IVP Last administered on 08/09/20at 16:47; Start 08/09/20 at 16:30; Stop 08/09/20 at 16:33; Status DC Midodrine (Proamatine) 5 mg 1X STAT PO ; Start 08/09/20 at 17:03; Stop 08/09/20 at 17:07; Status DC Active Scripts Active Metoprolol Tartrate 25 Mg Tablet 12.5 Mg PO BID 30 Days Midodrine Hcl 5 Mg Tablet 7.5 Mg PO [id number] 30 Days Zinc (Zinc Gluconate) 50 Mg Tablet 100 Mg PO DAILY 30 Days Vitamin D3 (Cholecalciferol (Vitamin D3)) 1,250 Mcg Capsule 1,250 Mcg PO BID 30 Days Vitamin C (Ascorbic Acid) 500 Mg Capsule.er 1 Cap PO BID 30 Days Reported Compro (Prochlorperazine Maleate) 25 Mg Supp.rect 25 Mg RC Q12HR Midodrine Hcl 5 Mg Tablet 7.5 Mg PO TID 30 Days Metoprolol Tartrate 25 Mg Tablet 12.5 Mg PO BID 30 Days Cymbalta (Duloxetine Hcl) 60 Mg Capsule.dr 1 Cap PO DAILY Vitamin B-1 (Thiamine Mononitrate) 100 Mg Tablet 1 Tab PO DAILY 30 Days Cyclobenzaprine Hcl 10 Mg Tablet 10 Mg PO TID Vitamin D3 (Cholecalciferol (Vitamin D3)) 1,250 Mcg Capsule 50,000 Mcg PO WEEKLY PRN Clonazepam 0.5 Mg Tablet 0.5 Mg PO BID Pantoprazole Sodium (Pantoprazole Sodium) 40 Mg Tablet.dr 40 Mg PO BIDBFRMEAL Amitriptyline Hcl 50 Mg Tablet 1 Tab PO QHS Turmeric (Turmeric Root Extract) 538 Mg Capsule 538 Mg PO TID Milk Thistle 175 Mg Tablet 175 Mg PO HS Klor-Con M20 (Potassium Chloride) 20 Meq Tab.er.prt 20 Meq PO DAILY Tradjenta (Linagliptin) 5 Mg Tablet 5 Mg PO DAILY Tradjenta (Linagliptin) 5 Mg Tablet 5 Mg PO DAILY Lamictal (Lamotrigine) 100 Mg Tablet 1 Tab PO HS Lamictal (Lamotrigine) 25 Mg Tablet 50 Mg PO DAILY08 Oxycodone Hcl 5 Mg Capsule 5 Mg PO PRN Q4HRS PRN Crestor (Rosuvastatin Calcium) 40 Mg Tablet 20 Mg PO HS Multiple Vitamins (Multivitamin) 1 Each Tablet 1 Each PO DAILY Zyprexa (Olanzapine) 7.5 Mg Tablet 10 Mg PO HS Transderm-Scop (Scopolamine) 1 Each Patch.td72 1 Each TD Q3DAYS Albuterol Sulfate Neb Soln (Albuterol Sulfate) 2.5 Mg/3 Ml Vial.neb 2.5 Mg NEB PRN 3-4XDAILY PRN Gabapentin (Gabapentin) 300 Mg Capsule 300 Mg PO TID Zofran (Ondansetron Hcl) 4 Mg Tablet 4 Mg PO Q4HRS PRN Phoslo (Calcium Acetate) 667 Mg Capsule 1,334 Mg PO TIDWMEALS Proair Hfa Inhaler (Albuterol Sulfate) 8.5 Gm Hfa.aer.ad 1 Puff INH PRN Q4HRS PRN Allergies Allergies: Coded Allergies: lurasidone (Verified Allergy, Severe, 06/30/19) Rash, seizure (due to combination with other medications per patient-does not take any longer due to reaction) zolpidem (Verified Allergy, Intermediate, BLISTERS AND HIVES, 03/19/20) adhesive tape (Verified Adverse Reaction, Intermediate, Rash, 03/19/20) ROS General: YES: Fatigue, Malaise; No: Chills, Night Sweats, Appetite, Other PSYCHOLOGICAL ROS: YES: Anxiety, Concentration difficultie, Memory difficulties , Mood Swings, Obsessive thoughts; No: Behavioral Disorder, Decreased libido, Depression, Disorientation, Hallucinations, Hostility, Irritablity, Physical abuse, Sexual abuse, Sleep disturbances, Suicidal ideation, Other Eyes: Yes Blurry vision; No Decreased vision, No Double vision, No Dry eyes, No Excessive tearing, No Eye Pain, No Itchy Eyes, No Loss of vision, No Photophobia, No Scotomata, No Uses contacts, No Uses glasses, No Other HEENT: No: Heacaches, Visual Changes, Hearing change, Nasal congestion, Nasal discharge, Oral lesions, Sinus pain, Sore Throat, Epistaxis, Sneezing, Snoring, Tinnitus, Vertigo, Vocal changes, Other ALLERGY AND IMMUNOLOGY: No: Hives, Insect Bite Sensitivity, Itchy/Watery Eyes, Nasal Congestion, Post Nasal Drip, Seasonal Allergies, Other Hematological and Lymphatic: No: Bleeding Problems, Blood Clots, Blood Transfusions, Brusing, Night Sweats, Pallor, Swollen Lymph Nodes, Other ENDOCRINE: No: Breast Changes, Galactorrhea, Hair Pattern Changes, Hot Flashes, Malaise/lethargy, Mood Swings, Palpitations, Polydipsia/polyuria, Skin Changes, Temperature Intolerance, Unexpected Weight Changes, Other Breast: No New/Changing Breast Lumps, No Nipple changes, No Nipple discharge, No Other Respiratory: YES: Shortness of breath; No: Cough, Hemoptysis, Orthopnea, Pleuritic Pain, SOB with excertion, Sputum Changes, Stridor, Tachypnea, Wheezing, Other Cardiovascular: yes Chest Pain; No Palpitations, No Orthopnea, No Paroxysmal Noc. Dyspnea, No Edema, No Lt Headedness, No Other Gastrointestinal: Yes Nausea, Yes Abdominal Pain; No Vomiting, No Diarrhea, No Constipation, No Melena, No Hematochezia, No Other Genitourinary: No Dysuria, No Frequency, No Incontinence, No Hematuria, No Retention, No Discharge, No Urgency, No Pain, No Flank Pain, No Other, No , No , No , No , No , No , No Musculoskeletal: No Gait Disturbance, No Joint Pain, No Joint Stiffness, No Joint Swelling, No Muscle Pain, No Muscular Weakness, No Pain In:, No Swelling In:, No Other Neurological: No Behavorial Changes, No Bowel/Bladder ControlChng, No Confusion, No Dizziness, No Gait Disturbance, No Headaches, No Impaired Coord/balance, No Memory Loss, No Numbness/Tingling, No Seizures, No Speech Problems, No Tremors, No Visual Changes, No Weakness, No Other Skin: No Dry Skin, No Eczema, No Hair Changes, No Lumps, No Mole Changes, No Mottling, No Nail Changes, No Pruritus, No Rash, No Skin Lesion Changes, No Other, No Acne Physical Exam General: Alert, Oriented X3, Cooperative, mild distress HEENT: Atraumatic, Mucous membr. moist/pink, Other (does not open left eye, states it is fine) Lungs: Other (Bibasilar crackles) Heart: S1S2, RRR, no thrills, no rubs, no gallops, no murmurs Abdomen: Normal bowel sounds, Soft, No tenderness, No hepatosplenomegaly, No masses, Other (PD catheter clean, dry intact) Extremities: No clubbing, No cyanosis, No edema, Normal pulses, No tenderness/swelling Skin: No rashes, No breakdown, No significant lesion Neuro: Normal gait, Normal speech, Strength at 5/5 X4 ext, Normal tone, Sensation intact, Cranial nerves 3-12 NL, Reflexes 2+ Psych/Mental Status: Mental status NL, Mood NL Vitals Vitals Vital Signs Date Time Temp Pulse Resp B/P (MAP) Pulse Ox O2 Delivery O2 Flow Rate FiO2 08/09/20 13:25 98.3 130 16 103/58 (73) 98 Room Air 98.3 Labs Labs Laboratory Tests Test 08/09/20 14:11 08/09/20 15:15 White Blood Count 11.3 x10^3/uL (4.0-11.0) Red Blood Count 3.90 x10^6/uL (3.50-5.40) Hemoglobin 11.6 g/dL (12.0-15.5) Hematocrit 35.2 % (36.0-47.0) Mean Corpuscular Volume 90 fL (79-100) Mean Corpuscular Hemoglobin 30 pg (25-35) Mean Corpuscular Hemoglobin Concent 33 g/dL (31-37) Red Cell Distribution Width 14.6 % (11.5-14.5) Platelet Count 278 x10^3/uL (140-400) Neutrophils (%) (Auto) 86 % (31-73) Lymphocytes (%) (Auto) 9 % (24-48) Monocytes (%) (Auto) 5 % (0-9) Eosinophils (%) (Auto) 0 % (0-3) Basophils (%) (Auto) 0 % (0-3) Neutrophils # (Auto) 9.7 x10^3/uL (1.8-7.7) Lymphocytes # (Auto) 1.0 x10^3/uL (1.0-4.8) Monocytes # (Auto) 0.5 x10^3/uL (0.0-1.1) Eosinophils # (Auto) 0.0 x10^3/uL (0.0-0.7) Basophils # (Auto) 0.0 x10^3/uL (0.0-0.2) Segmented Neutrophils % 84 % (35-66) Band Neutrophils % 1 % (0-9) Lymphocytes % 11 % (24-48) Monocytes % 3 % (0-10) Metamyelocytes % 1 % (0-0) Platelet Estimate Adequate (ADEQUATE) Large Platelets Present Sodium Level 133 mmol/L (136-145) Potassium Level 4.3 mmol/L (3.5-5.1) Chloride Level 94 mmol/L (98-107) Carbon Dioxide Level 23 mmol/L (21-32) Anion Gap 16 (6-14) Blood Urea Nitrogen 51 mg/dL (7-20) Creatinine 12.3 mg/dL (0.6-1.0) Estimated GFR (Cockcroft-Gault) 3.6 BUN/Creatinine Ratio 4 (6-20) Glucose Level 319 mg/dL (70-99) Calcium Level 6.9 mg/dL (8.5-10.1) Magnesium Level 2.5 mg/dL (1.8-2.4) Total Bilirubin 0.4 mg/dL (0.2-1.0) Aspartate Amino Transf (AST/SGOT) 14 U/L (15-37) Alanine Aminotransferase (ALT/SGPT) 30 U/L (14-59) Alkaline Phosphatase 142 U/L (46-116) Troponin I Quantitative < 0.017 ng/mL (0.000-0.055) JU-Qfm-T-Type Natriuretic Peptide 3609 pg/mL (0-124) Total Protein 6.2 g/dL (6.4-8.2) Albumin 1.8 g/dL (3.4-5.0) Albumin/Globulin Ratio 0.4 (1.0-1.7) Lipase 125 U/L (73-393) Acetone Level Neg (NEG) O2 Saturation 95 % (92-99) Arterial Blood pH 7.34 (7.35-7.45) Arterial Blood pCO2 at Patient Temp 32 mmHg (35-46) Arterial Blood pO2 at Patient Temp 88 mmHg (85-108) Arterial Blood HCO3 17 mmol/L (21-28) Arterial Blood Base Excess -8 mmol/L (-3-3) FiO2 21 Laboratory Tests Test 08/09/20 14:11 08/09/20 15:15 White Blood Count 11.3 x10^3/uL (4.0-11.0) Red Blood Count 3.90 x10^6/uL (3.50-5.40) Hemoglobin 11.6 g/dL (12.0-15.5) Hematocrit 35.2 % (36.0-47.0) Mean Corpuscular Volume 90 fL (79-100) Mean Corpuscular Hemoglobin 30 pg (25-35) Mean Corpuscular Hemoglobin Concent 33 g/dL (31-37) Red Cell Distribution Width 14.6 % (11.5-14.5) Platelet Count 278 x10^3/uL (140-400) Neutrophils (%) (Auto) 86 % (31-73) Lymphocytes (%) (Auto) 9 % (24-48) Monocytes (%) (Auto) 5 % (0-9) Eosinophils (%) (Auto) 0 % (0-3) Basophils (%) (Auto) 0 % (0-3) Neutrophils # (Auto) 9.7 x10^3/uL (1.8-7.7) Lymphocytes # (Auto) 1.0 x10^3/uL (1.0-4.8) Monocytes # (Auto) 0.5 x10^3/uL (0.0-1.1) Eosinophils # (Auto) 0.0 x10^3/uL (0.0-0.7) Basophils # (Auto) 0.0 x10^3/uL (0.0-0.2) Segmented Neutrophils % 84 % (35-66) Band Neutrophils % 1 % (0-9) Lymphocytes % 11 % (24-48) Monocytes % 3 % (0-10) Metamyelocytes % 1 % (0-0) Platelet Estimate Adequate (ADEQUATE) Large Platelets Present Sodium Level 133 mmol/L (136-145) Potassium Level 4.3 mmol/L (3.5-5.1) Chloride Level 94 mmol/L (98-107) Carbon Dioxide Level 23 mmol/L (21-32) Anion Gap 16 (6-14) Blood Urea Nitrogen 51 mg/dL (7-20) Creatinine 12.3 mg/dL (0.6-1.0) Estimated GFR (Cockcroft-Gault) 3.6 BUN/Creatinine Ratio 4 (6-20) Glucose Level 319 mg/dL (70-99) Calcium Level 6.9 mg/dL (8.5-10.1) Magnesium Level 2.5 mg/dL (1.8-2.4) Total Bilirubin 0.4 mg/dL (0.2-1.0) Aspartate Amino Transf (AST/SGOT) 14 U/L (15-37) Alanine Aminotransferase (ALT/SGPT) 30 U/L (14-59) Alkaline Phosphatase 142 U/L (46-116) Troponin I Quantitative < 0.017 ng/mL (0.000-0.055) EW-Zde-N-Type Natriuretic Peptide 3609 pg/mL (0-124) Total Protein 6.2 g/dL (6.4-8.2) Albumin 1.8 g/dL (3.4-5.0) Albumin/Globulin Ratio 0.4 (1.0-1.7) Lipase 125 U/L (73-393) Acetone Level Neg (NEG) O2 Saturation 95 % (92-99) Arterial Blood pH 7.34 (7.35-7.45) Arterial Blood pCO2 at Patient Temp 32 mmHg (35-46) Arterial Blood pO2 at Patient Temp 88 mmHg (85-108) Arterial Blood HCO3 17 mmol/L (21-28) Arterial Blood Base Excess -8 mmol/L (-3-3) FiO2 21 Images Images Chest radiograph: Hypoexpanded exam. Cardiac silhouette is near the upper limits of normal in size. Linear opacity again seen at the left lung base without a new region of consolidation IMPRESSION: * Linear opacity at left lung base again seen and can be from atelectasis or scarring. No new region of consolidation. CTPA: Contrast bolus is adequate. No evidence of central, lobar or segmental pulmonary embolus. Subsegmental branches are not well evaluated based on technique. Evaluation of the ascending aorta is limited due to motion artifact. Heart size is upper limits of normal. No pericardial effusion. No mediastinal, hilar or axillary lymphadenopathy. Thyroid gland is unremarkable. Central airways are patent. There is some patchy groundglass opacity throughout both lungs, basilar predominant. No pleural effusion. No pneumothorax. Images of the upper abdomen show small amount of ascites. There are some wedge shaped defects within the spleen that are of uncertain etiology. Evidence of prior gastric bypass. Gallbladder surgically absent. Bone windows show no acute findings. Multilevel spondylosis. IMPRESSION: 1. No evidence of central, lobar or segmental pulmonary embolus. 2. There are some wedge-shaped defect within the spleen that are suspicious for small splenic infarcts. 3. The ascending aorta is not well evaluated due to motion artifact. There is no significant aneurysm or pericardial effusion. 4. Patchy groundglass opacity throughout both lungs, nonspecific but possibly related to early Covid 19 pneumonitis. 5. Small amount of ascites. VTE Prophylaxis Ordered VTE Prophylaxis Devices: Yes VTE Pharmacological Prophylaxi: Yes Assessment/Plan Assessment/Plan A/P: Chest pain - negative for PE, will trend troponins. Could be bronchitis vs GI related, though she notes thorough work-up recently Diabetes mellitus - A1c > [address] on basal bolus plus regimen while she is inpatient. End-stage renal disease, on peritoneal dialysis - consult nephrology for management. Transplant deferred due to A1C > 8 Chronic nausea and vomiting - with gastroparesis likely secondary to combination of diabetes and chronic opioid use. Recurrent falls - will have PT assess for gait disorder Morbid obesity with history of Clive-en-Y - successfully lost weight, stable now Anemia of chronic renal insufficiency. Severe protein calorie malnutrition - dietitian to see H/o COVID19 from PCR lab test on 06/16/2020 - s/p treatment FEN - Renal ADA diet PPX - heparin CODE - DNR/DNI Dispo - inpatient for above Justifications for Admission Other Justification Falls ROSS BRUNNER MD Aug 09, 2020 17:32
[2020-08-09] MEDS ORDERED: ONDANSETRON PF 4 MG/2 ML VIAL. IV PRN (17:45)
[2020-08-09] MEDS ORDERED: fentaNYL PF VIAL 100 MCG/2 ML VIAL IV PRN ×2 (17:45→20:00)
--- NOTE | 2020-08-09 19:22 | NUR ---
The patient, LUCHO JORDAN, 30 y/o, F admitted by ROSS BRUNNER MD, was given written information regarding hospital policies, unit procedures and contact persons. Valuables were checked and left with her.
[2020-08-09] MEDS ORDERED: DEXTROSE 50% 25 GM / 50ML DISP.SYRIN. IV PRN (20:00)
[2020-08-09] MEDS ORDERED: ALBUTEROL SULFATE 2.5 MG/3 ML NEBU. INH PRN (20:45)
[2020-08-09] MEDS ORDERED: NON FORMULARY ITEM (Ondansetron Hcl (Zofran) 4 MG) PO PRN (20:45)
[2020-08-09] MEDS: PROCHLORPERAZINE 25 MG SUPP.RECT. RC SCH (21:00)
[2020-08-09] MEDS: INSULIN LISPRO 300 UNITS/3 ML VIAL. SQ SCH (21:00)
[2020-08-09] MEDS ORDERED: lamoTRIgine 100 MG TABLET. PO SCH (21:00)
[2020-08-09] MEDS ORDERED: ATORVASTATIN CALCIUM 40 MG TABLET. PO SCH (21:00)
[2020-08-09] MEDS ORDERED: AMITRIPTYLINE HCL 25 MG TABLET. PO SCH (21:00)
[2020-08-09] MEDS: METOPROLOL TART IMMED RELEASE 25 MG TABLET. PO SCH (21:17)
[2020-08-09] MEDS: oxyCODONE IR 5 MG TABLET PO PRN (21:29)
[2020-08-09] MEDS: HEPARIN for SUB-Q USE 5,000 UNIT/ML VIAL. SQ SCH (21:47)
[2020-08-09 23:10] VITALS: BP 81/39
[2020-08-10 03:00] VITALS: BP 84/31
[2020-08-10] MEDS: HEPARIN for SUB-Q USE 5,000 UNIT/ML VIAL. SQ SCH ×2 (04:59→13:55)
--- NOTE | 2020-08-10 05:15 | EKG ---
[facility] [address] [place] [address] Test Date: 2020-08-09 Test Time: 12:35:54 Pat Name: LUCHO JORDAN Department: Patient ID: [id number] Room: Gender: F Coding Consultant: LORENA ER : 1990 Requested By: NORIS MANJARREZ Order Number: [id number] Reading MD: Measurements Intervals [place] Rate: 128 P: 210 OR: 112 QRS: -9 QRSD: 178 T: 20 QT: 348 QTc: 512 Interpretive Statements SUPRAVENTRICULAR RHYTHM LEFTWARD AXIS NON SPECIFIC INTRAVENTRICULAR BLOCK QRS(T) CONTOUR ABNORMALITY CONSISTENT WITH ANTERIOR INFARCT PROBABLY OLD ABNORMAL ECG RI6.02 No previous ECG available for comparison
[2020-08-10 07:00] VITALS: BP 93/37
[2020-08-10] MEDS: INSULIN LISPRO 300 UNITS/3 ML VIAL. SQ SCH ×2 (07:30→11:30)
[2020-08-10] MEDS ORDERED: PANTOPRAZOLE 40 MG TABLET.DR. PO SCH (07:30)
[2020-08-10] MEDS ORDERED: lamoTRIgine 25 MG TABLET. PO SCH (08:00)
[2020-08-10 08:16] LABS: BASO # 0.1 x10^3/uL (0.0-0.2); BASO % 1 % (0-3); EOS # 0.1 x10^3/uL (0.0-0.7); EOS % 1 % (0-3); HEMATOCRIT 25.7 % (36.0-47.0); HEMOGLOBIN 8.9 g/dL (12.0-15.5); LYMPH # 1.6 x10^3/uL (1.0-4.8); LYMPH % 22 % (24-48); MEAN CORPUSCULAR HEMOGLOBIN 31 pg (25-35); MEAN CORPUSCULAR HGB CONC 35 g/dL (31-37); MEAN CORPUSCULAR VOLUME 90 fL (79-100); MONO # 0.4 x10^3/uL (0.0-1.1); MONO % 6 % (0-9); NEUT # 5.1 x10^3/uL (1.8-7.7); NEUT % 71 % (31-73); PLATELET COUNT 221 x10^3/uL (140-400); RED BLOOD COUNT 2.84 x10^6/uL (3.50-5.40); RED CELL DISTRIBUTION WIDTH 14.3 % (11.5-14.5); WHITE BLOOD COUNT 7.2 x10^3/uL (4.0-11.0)
[2020-08-10] MEDS: CALCIUM ACETATE 667 MG CAPSULE PO SCH ×2 (08:39→12:21)
[2020-08-10 08:45] LABS: ALBUMIN 1.3 g/dL (3.4-5.0); CALCIUM 6.5 mg/dL (8.5-10.1); CREATININE 13.1 mg/dL (0.6-1.0); GFR 3.3; POTASSIUM 5.1 mmol/L (3.5-5.1)
[2020-08-10 08:46] LABS: PHOSPHORUS 12.5 mg/dL (2.6-4.7)
[2020-08-10] MEDS ORDERED: CHOLECALCIFEROL (VITAMIN D3) 1,000 UNIT TABLET PO SCH (09:00)
[2020-08-10] MEDS ORDERED: THIAMINE 100 MG TABLET. PO SCH (09:00)
[2020-08-10] MEDS: PROCHLORPERAZINE 25 MG SUPP.RECT. RC SCH (09:00)
[2020-08-10] MEDS ORDERED: ASCORBIC ACID 500 MG TABLET PO SCH (09:00)
[2020-08-10] MEDS: METOPROLOL TART IMMED RELEASE 25 MG TABLET. PO SCH (09:00)
--- NOTE | 2020-08-10 09:17 | PDOC2 ---
CONSULT Date of Consult Date of Consult DATE: 08/10/20 TIME: 09:16 Reason for Consult Reason for Consult: ESRD on PD History of Present Illness Reason for Visit: Ms Arteaga is a 30 yo F CF PMHx gastroparesis, uncontrolled DM2, narcotic dependency, end-stage renal disease on PD, bipolar MDD, chronic pain, PFO, PIZARRO, anemia, asthma, morbid obesity s/p clive-en-y gastric bypass in 2018, port-a-cath in place who presented to the ER with weakness and chest pain. She c/o weakness and nausea with shortness of breath , states has not been eating or drinking very well. She denies vomiting, chest pain, shortness of air, dizziness, headache, diarrhea, vision changes, numbness or tingling, focal weakness. She notes substernal chest pain and trouble breathing since 08/09/20 in the mo rning. Patient described the pain as substernal radiates to her back and describes it as an elephant sitting on her chest. She notes on further review this has been progressively worsening over the past 6 weeks. She has been admitted to the hospital multiple times over the past few months, the end of May was for COVID 19 treatment (she had been hospitalized in May twice prior for falls and confusion). After COVID 19 treatment she notes she was hospitalized for at least 2 weeks at [facility] for respiratory distress and has also been to [facility] (Critical access hospital). She notes she had an EGD there very recently after c/o chest pain, she does not recall the day this was performed, but notes no anastomic ulcer was reported and she was started on scopolamine patch and elavil qhs for her pain and nausea. EKG appears Sinus Rhythm and no STEMI Chest radiograph with possible linear scarring at left base, poor inspiration. Due to her pain radiating to her back a CTPA was performed with no evidence of central, lobar or segmental pulmonary embolus, wedge-shaped defect within the spleen consistent with splenic infarcts, small ascites and patchy groundglass opacity throughout both lungs. Currently she states she is feeling better . Past Medical History Cardiovascular: HTN, Hyperlipidemia Pulmonary: Asthma, Other CENTRAL NERVOUS SYSTEM: Periperal neuropathy, Seizure GI: Other Heme/Onc: Anemia NOS, Other Hepatobiliary: Cholelithiasis, Other Psych: Anxiety, Depression Musculoskeletal: Osteoarthritis Rheumatologic: No pertinent hx Infectious disease: No pertinent hx Renal/: Chronic renal failure, UTI Endocrine: Diabetes Past Surgical History Past Surgical History: Cholecystectomy, Hysterectomy, Other Family History Family History: Hypertension Social History No ALCOHOL: none Drugs: None Lives: with Family Domestic Violence: Neg Current Problem List Problem List Problems Medical Problems: (1) Chest pain Status: Acute (2) ESRD (end stage renal disease) Status: Acute (3) Hyperglycemia Status: Acute (4) Splenic infarction Status: Acute Current Medications Current Medications Current Medications Sodium Chloride 1,000 ml @ 1,000 mls/hr 1X ONCE IV Last administered on at 14:25; Start 08/09/20 at 14:00; Stop 08/09/20 at 14:59; Status DC Calcium Chloride (Calcium Chloride) 1,000 mg 1X ONCE IV Last administered on 08/09/20at 15:14; Start 08/09/20 at 15:00; Stop 08/09/20 at 15:01; Status DC Ondansetron HCl (Zofran) 4 mg 1X ONCE IVP Last administered on 08/09/20at 15:25; Start 08/09/20 at 15:30; Stop 08/09/20 at 15:31; Status DC Iohexol (Omnipaque 350 Mg/ml) 75 ml 1X ONCE IV Last administered on 08/09/20at 16:01; Start 08/09/20 at 15:45; Stop 08/09/20 at 15:46; Status DC Info (CONTRAST GIVEN -- Rx MONITORING) 1 each PRN DAILY PRN MC SEE COMMENTS; Start 08/09/20 at 15:45; Stop 08/11/20 at 15:44 Morphine Sulfate (Morphine Sulfate) 4 mg 1X ONCE IV Last administered on 08/09/20at 19:06; Start 08/09/20 at 16:30; Stop 08/09/20 at 16:33; Status DC Metoclopramide HCl (Reglan Vial) 10 mg 1X ONCE IVP Last administered on 08/09/20at 16:47; Start 08/09/20 at 16:30; Stop 08/09/20 at 16:33; Status DC Midodrine (Proamatine) 5 mg 1X STAT PO Last administered on 08/09/20at 17:37; Start 08/09/20 at 17:03; Stop 08/09/20 at 17:07; Status DC Ondansetron HCl (Zofran) 4 mg PRN Q8HRS PRN IV NAUSEA/VOMITING; Start 08/09/20 at 17:45; Stop 08/11/20 at 17:44 Fentanyl Citrate (Fentanyl 2ml Vial) 50 mcg PRN Q1HR PRN IV PAIN; Start 08/09/20 at 17:45; Stop 08/09/20 at 19:55; Status DC Fentanyl Citrate (Fentanyl 2ml Vial) 50 mcg PRN Q2HRS PRN IV PAIN; Start 08/09/20 at 20:00 Insulin Human Lispro (HumaLOG) 0-5 UNITS QIDACHS SQ ; Start 08/09/20 at 21:00 Dextrose (Dextrose 50%-Water Syringe) 12.5 gm PRN Q15MIN PRN IV SEE COMMENTS; Start 08/09/20 at 20:00 Albuterol Sulfate (Ventolin Neb Soln) 2.5 mg PRN Q4HRS PRN INH SHORTNESS OF BREATH; Start 08/09/20 at 20:45 Calcium Acetate (Phoslo) 1,334 mg TIDWMEALS PO Last administered on 08/10/20at 08:39; Start 08/10/20 at 08:00 Lamotrigine (LaMICtal) 50 mg DAILY08 PO Last administered on 08/10/20at 08:40; Start 08/10/20 at 08:00 Lamotrigine (LaMICtal) 100 mg HS PO Last administered on 08/09/20at 21:19; Start 08/09/20 at 21:00 Metoprolol Tartrate (Lopressor) 12.5 mg BID PO Last administered on 08/09/20at 21:17; Start 08/09/20 at 21:00 Pantoprazole Sodium (Protonix) 40 mg BIDBFRMEAL PO Last administered on 08/10/20at 08:40; Start 08/10/20 at 07:30 Prochlorperazine (Compazine) 25 mg Q12HR RC ; Start 08/09/20 at 21:00 Scopolamine (Transderm-Scop) 1 patch Q3DAYS TD ; Start 08/12/20 at 09:00 Thiamine Mononitrate (Vitamin B-1) 100 mg DAILY PO ; Start 08/10/20 at 09:00 Amitriptyline HCl (Elavil) 50 mg QHS PO Last administered on 08/09/20at 21:31; Start 08/09/20 at 21:00 Ascorbic Acid (Vitamin C) 500 mg BID PO ; Start 08/10/20 at 09:00 Vitamin D (Vitamin D3) 1,000 unit BID PO ; Start 08/10/20 at 09:00 Non-Formulary Medication (Ondansetron Hcl (Zofran)) 4 mg PRN Q4HRS PRN PO NAUSEA/VOMITING; Start 08/09/20 at 20:45 Oxycodone HCl (Roxicodone) 5 mg PRN Q4HRS PRN PO PAIN Last administered on 08/09/20at 21:29; Start 08/09/20 at 21:00 Atorvastatin Calcium (Lipitor) 80 mg QHS PO Last administered on 08/09/20at 21:31; Start 08/09/20 at 21:00 Heparin Sodium (Porcine) (Heparin Sodium) 5,000 unit Q8HRS SQ Last administered on 08/10/20at 04:59; Start 08/09/20 at 22:00 Active Scripts Active Metoprolol Tartrate 25 Mg Tablet 12.5 Mg PO BID 30 Days Midodrine Hcl 5 Mg Tablet 7.5 Mg PO [id number] 30 Days Zinc (Zinc Gluconate) 50 Mg Tablet 100 Mg PO DAILY 30 Days Vitamin D3 (Cholecalciferol (Vitamin D3)) 1,250 Mcg Capsule 1,250 Mcg PO BID 30 Days Vitamin C (Ascorbic Acid) 500 Mg Capsule.er 1 Cap PO BID 30 Days Reported Compro (Prochlorperazine Maleate) 25 Mg Supp.rect 25 Mg RC Q12HR Midodrine Hcl 5 Mg Tablet 7.5 Mg PO TID 30 Days Metoprolol Tartrate 25 Mg Tablet 12.5 Mg PO BID 30 Days Cymbalta (Duloxetine Hcl) 60 Mg Capsule.dr 1 Cap PO DAILY Vitamin B-1 (Thiamine Mononitrate) 100 Mg Tablet 1 Tab PO DAILY 30 Days Cyclobenzaprine Hcl 10 Mg Tablet 10 Mg PO TID Vitamin D3 (Cholecalciferol (Vitamin D3)) 1,250 Mcg Capsule 50,000 Mcg PO WEEKLY PRN Clonazepam 0.5 Mg Tablet 0.5 Mg PO BID Pantoprazole Sodium (Pantoprazole Sodium) 40 Mg Tablet.dr 40 Mg PO BIDBFRMEAL Amitriptyline Hcl 50 Mg Tablet 1 Tab PO QHS Turmeric (Turmeric Root Extract) 538 Mg Capsule 538 Mg PO TID Milk Thistle 175 Mg Tablet 175 Mg PO HS Klor-Con M20 (Potassium Chloride) 20 Meq Tab.er.prt 20 Meq PO DAILY Tradjenta (Linagliptin) 5 Mg Tablet 5 Mg PO DAILY Tradjenta (Linagliptin) 5 Mg Tablet 5 Mg PO DAILY Lamictal (Lamotrigine) 100 Mg Tablet 1 Tab PO HS Lamictal (Lamotrigine) 25 Mg Tablet 50 Mg PO DAILY08 Oxycodone Hcl 5 Mg Capsule 5 Mg PO PRN Q4HRS PRN Crestor (Rosuvastatin Calcium) 40 Mg Tablet 20 Mg PO HS Multiple Vitamins (Multivitamin) 1 Each Tablet 1 Each PO DAILY Zyprexa (Olanzapine) 7.5 Mg Tablet 10 Mg PO HS Transderm-Scop (Scopolamine) 1 Each Patch.td72 1 Each TD Q3DAYS Albuterol Sulfate Neb Soln (Albuterol Sulfate) 2.5 Mg/3 Ml Vial.neb 2.5 Mg NEB PRN 3-4XDAILY PRN Gabapentin (Gabapentin) 300 Mg Capsule 300 Mg PO TID Zofran (Ondansetron Hcl) 4 Mg Tablet 4 Mg PO Q4HRS PRN Phoslo (Calcium Acetate) 667 Mg Capsule 1,334 Mg PO TIDWMEALS Proair Hfa Inhaler (Albuterol Sulfate) 8.5 Gm Hfa.aer.ad 1 Puff INH PRN Q4HRS PRN Allergies Allergies: Coded Allergies: lurasidone (Verified Allergy, Severe, 06/30/19) Rash, seizure (due to combination with other medications per patient-does not take any longer due to reaction) zolpidem (Verified Allergy, Intermediate, BLISTERS AND HIVES, 03/19/20) adhesive tape (Verified Adverse Reaction, Intermediate, Rash, 03/19/20) ROS Review of System As per HPI, rest of the ROS is negative Physical Exam Physical Exam GEN: No apparent distress. HEENT: OM moist NECK: Supple LUNGS: Clear to auscultation, non labored HEART: RRR, S!, S2 present. ABDOMEN: Soft, nontender. PD catheter +, No drainage or erythema. EXTREMITIES: Without clubbing, cyanosis, or edema. NEUROLOGIC: grossly normal. PSYCHIATRIC: Normal affect, normal mood. Stable SKIN: No rashes, No Olmos, No CVA orSP tenderness Vital Signs Vital Signs Date Time Temp Pulse Resp B/P (MAP) Pulse Ox O2 Delivery O2 Flow Rate FiO2 08/10/20 07:35 98 Room Air 08/10/20 07:00 98.3 97 16 93/37 (55) 98.3 Assessment & Plan ESRD- On PD under Dr. Ospina's care Continue APD as per her home prescription , clinically stable, stable resp status and BP . Discussed with pt and rand butter Chest pain POA - negative for PE Hypotension - chronic , On Midodrine HyperPhophatemia- Pt reports Pohos binder dose was decreased at [facility], recently increased back up by Dr. Ospina Hx of Multiple falls /Pre-syncopal episodes - seen by Neuro and cardiology during past hospitalizations - hypotension not related to arrhythmia but more from autonomic neuropathy and orthostasis. No event monitor warranted at this time" Echo Normal w/u for Adrenal insufficiency -AM cortisol was normal History of gastric bypass-S/p Clive-en-Y @ [facility] in 2017 - lost 130 pounds. Chronic Nausea/Vomiting- GI has been consulted in the past She seen Dr. Sinclair and many other GE in the past. Also Chronic Opioid use Hx of Intermittent dysphagia w/ solid foods intermittent getting caught in upper throat - Reports normal EGD and colonoscopy @ ~1 year ago. Normal EGD and colonoscopy w/ Dr. Sinclair for RADHA in 01/2016. Diabetes mellitus - A1c > 8 Splenic Infarct - was evaluated in May 2020 at [facility] - recent CTA- wedge-shaped defect within the spleen that are suspicious for small splenic infarcts. H/o COVID19 from PCR lab test on 06/16/2020 - s/p treatment. CTA 08/09/2020 Patchy groundglass opacity throughout both lungs, nonspecific but possibly related to early Covid 19 pneumonitis. Labs Labs Laboratory Tests Test 08/09/20 14:11 08/09/20 15:15 08/09/20 17:43 08/09/20 19:30 White Blood Count 11.3 x10^3/uL (4.0-11.0) Red Blood Count 3.90 x10^6/uL (3.50-5.40) Hemoglobin 11.6 g/dL (12.0-15.5) Hematocrit 35.2 % (36.0-47.0) Mean Corpuscular Volume 90 fL (79-100) Mean Corpuscular Hemoglobin 30 pg (25-35) Mean Corpuscular Hemoglobin Concent 33 g/dL (31-37) Red Cell Distribution Width 14.6 % (11.5-14.5) Platelet Count 278 x10^3/uL (140-400) Neutrophils (%) (Auto) 86 % (31-73) Lymphocytes (%) (Auto) 9 % (24-48) Monocytes (%) (Auto) 5 % (0-9) Eosinophils (%) (Auto) 0 % (0-3) Basophils (%) (Auto) 0 % (0-3) Neutrophils # (Auto) 9.7 x10^3/uL (1.8-7.7) Lymphocytes # (Auto) 1.0 x10^3/uL (1.0-4.8) Monocytes # (Auto) 0.5 x10^3/uL (0.0-1.1) Eosinophils # (Auto) 0.0 x10^3/uL (0.0-0.7) Basophils # (Auto) 0.0 x10^3/uL (0.0-0.2) Segmented Neutrophils % 84 % (35-66) Band Neutrophils % 1 % (0-9) Lymphocytes % 11 % (24-48) Monocytes % 3 % (0-10) Metamyelocytes % 1 % (0-0) Platelet Estimate Adequate (ADEQUATE) Large Platelets Present Sodium Level 133 mmol/L (136-145) Potassium Level 4.3 mmol/L (3.5-5.1) Chloride Level 94 mmol/L (98-107) Carbon Dioxide Level 23 mmol/L (21-32) Anion Gap 16 (6-14) Blood Urea Nitrogen 51 mg/dL (7-20) Creatinine 12.3 mg/dL (0.6-1.0) Estimated GFR (Cockcroft-Gault) 3.6 BUN/Creatinine Ratio 4 (6-20) Glucose Level 319 mg/dL (70-99) Calcium Level 6.9 mg/dL (8.5-10.1) Magnesium Level 2.5 mg/dL (1.8-2.4) Total Bilirubin 0.4 mg/dL (0.2-1.0) Aspartate Amino Transf (AST/SGOT) 14 U/L (15-37) Alanine Aminotransferase (ALT/SGPT) 30 U/L (14-59) Alkaline Phosphatase 142 U/L (46-116) Troponin I Quantitative < 0.017 ng/mL (0.000-0.055) < 0.017 ng/mL (0.000-0.055) < 0.017 ng/mL (0.000-0.055) YA-Bgg-E-Type Natriuretic Peptide 3609 pg/mL (0-124) Total Protein 6.2 g/dL (6.4-8.2) Albumin 1.8 g/dL (3.4-5.0) Albumin/Globulin Ratio 0.4 (1.0-1.7) Lipase 125 U/L (73-393) Acetone Level Neg (NEG) O2 Saturation 95 % (92-99) Arterial Blood pH 7.34 (7.35-7.45) Arterial Blood pCO2 at Patient Temp 32 mmHg (35-46) Arterial Blood pO2 at Patient Temp 88 mmHg (85-108) Arterial Blood HCO3 17 mmol/L (21-28) Arterial Blood Base Excess -8 mmol/L (-3-3) FiO2 21 Vitamin B12 Level 438 pg/mL (247-911) 25-Hydroxy Vitamin D Total 15.4 ng/mL (30-100) Test 08/09/20 20:26 08/10/20 07:46 08/10/20 08:21 Glucose (Fingerstick) 143 mg/dL (70-99) 83 mg/dL (70-99) White Blood Count 7.2 x10^3/uL (4.0-11.0) Red Blood Count 2.84 x10^6/uL (3.50-5.40) Hemoglobin 8.9 g/dL (12.0-15.5) Hematocrit 25.7 % (36.0-47.0) Mean Corpuscular Volume 90 fL (79-100) Mean Corpuscular Hemoglobin 31 pg (25-35) Mean Corpuscular Hemoglobin Concent 35 g/dL (31-37) Red Cell Distribution Width 14.3 % (11.5-14.5) Platelet Count 221 x10^3/uL (140-400) Neutrophils (%) (Auto) 71 % (31-73) Lymphocytes (%) (Auto) 22 % (24-48) Monocytes (%) (Auto) 6 % (0-9) Eosinophils (%) (Auto) 1 % (0-3) Basophils (%) (Auto) 1 % (0-3) Neutrophils # (Auto) 5.1 x10^3/uL (1.8-7.7) Lymphocytes # (Auto) 1.6 x10^3/uL (1.0-4.8) Monocytes # (Auto) 0.4 x10^3/uL (0.0-1.1) Eosinophils # (Auto) 0.1 x10^3/uL (0.0-0.7) Basophils # (Auto) 0.1 x10^3/uL (0.0-0.2) Sodium Level 139 mmol/L (136-145) Potassium Level 5.1 mmol/L (3.5-5.1) Chloride Level 101 mmol/L (98-107) Carbon Dioxide Level 20 mmol/L (21-32) Anion Gap 18 (6-14) Blood Urea Nitrogen 56 mg/dL (7-20) Creatinine 13.1 mg/dL (0.6-1.0) Estimated GFR (Cockcroft-Gault) 3.3 Glucose Level 86 mg/dL (70-99) Calcium Level 6.5 mg/dL (8.5-10.1) Phosphorus Level 12.5 mg/dL (2.6-4.7) Troponin I Quantitative < 0.017 ng/mL (0.000-0.055) Albumin 1.3 g/dL (3.4-5.0) Laboratory Tests Test 08/09/20 14:11 08/09/20 15:15 08/09/20 17:43 08/09/20 19:30 White Blood Count 11.3 x10^3/uL (4.0-11.0) Red Blood Count 3.90 x10^6/uL (3.50-5.40) Hemoglobin 11.6 g/dL (12.0-15.5) Hematocrit 35.2 % (36.0-47.0) Mean Corpuscular Volume 90 fL (79-100) Mean Corpuscular Hemoglobin 30 pg (25-35) Mean Corpuscular Hemoglobin Concent 33 g/dL (31-37) Red Cell Distribution Width 14.6 % (11.5-14.5) Platelet Count 278 x10^3/uL (140-400) Neutrophils (%) (Auto) 86 % (31-73) Lymphocytes (%) (Auto) 9 % (24-48) Monocytes (%) (Auto) 5 % (0-9) Eosinophils (%) (Auto) 0 % (0-3) Basophils (%) (Auto) 0 % (0-3) Neutrophils # (Auto) 9.7 x10^3/uL (1.8-7.7) Lymphocytes # (Auto) 1.0 x10^3/uL (1.0-4.8) Monocytes # (Auto) 0.5 x10^3/uL (0.0-1.1) Eosinophils # (Auto) 0.0 x10^3/uL (0.0-0.7) Basophils # (Auto) 0.0 x10^3/uL (0.0-0.2) Segmented Neutrophils % 84 % (35-66) Band Neutrophils % 1 % (0-9) Lymphocytes % 11 % (24-48) Monocytes % 3 % (0-10) Metamyelocytes % 1 % (0-0) Platelet Estimate Adequate (ADEQUATE) Large Platelets Present Sodium Level 133 mmol/L (136-145) Potassium Level 4.3 mmol/L (3.5-5.1) Chloride Level 94 mmol/L (98-107) Carbon Dioxide Level 23 mmol/L (21-32) Anion Gap 16 (6-14) Blood Urea Nitrogen 51 mg/dL (7-20) Creatinine 12.3 mg/dL (0.6-1.0) Estimated GFR (Cockcroft-Gault) 3.6 BUN/Creatinine Ratio 4 (6-20) Glucose Level 319 mg/dL (70-99) Calcium Level 6.9 mg/dL (8.5-10.1) Magnesium Level 2.5 mg/dL (1.8-2.4) Total Bilirubin 0.4 mg/dL (0.2-1.0) Aspartate Amino Transf (AST/SGOT) 14 U/L (15-37) Alanine Aminotransferase (ALT/SGPT) 30 U/L (14-59) Alkaline Phosphatase 142 U/L (46-116) Troponin I Quantitative < 0.017 ng/mL (0.000-0.055) < 0.017 ng/mL (0.000-0.055) < 0.017 ng/mL (0.000-0.055) ZS-Ytq-R-Type Natriuretic Peptide 3609 pg/mL (0-124) Total Protein 6.2 g/dL (6.4-8.2) Albumin 1.8 g/dL (3.4-5.0) Albumin/Globulin Ratio 0.4 (1.0-1.7) Lipase 125 U/L (73-393) Acetone Level Neg (NEG) O2 Saturation 95 % (92-99) Arterial Blood pH 7.34 (7.35-7.45) Arterial Blood pCO2 at Patient Temp 32 mmHg (35-46) Arterial Blood pO2 at Patient Temp 88 mmHg (85-108) Arterial Blood HCO3 17 mmol/L (21-28) Arterial Blood Base Excess -8 mmol/L (-3-3) FiO2 21 Vitamin B12 Level 438 pg/mL (247-911) 25-Hydroxy Vitamin D Total 15.4 ng/mL (30-100) Test 08/09/20 20:26 08/10/20 07:46 08/10/20 08:21 Glucose (Fingerstick) 143 mg/dL (70-99) 83 mg/dL (70-99) White Blood Count 7.2 x10^3/uL (4.0-11.0) Red Blood Count 2.84 x10^6/uL (3.50-5.40) Hemoglobin 8.9 g/dL (12.0-15.5) Hematocrit 25.7 % (36.0-47.0) Mean Corpuscular Volume 90 fL (79-100) Mean Corpuscular Hemoglobin 31 pg (25-35) Mean Corpuscular Hemoglobin Concent 35 g/dL (31-37) Red Cell Distribution Width 14.3 % (11.5-14.5) Platelet Count 221 x10^3/uL (140-400) Neutrophils (%) (Auto) 71 % (31-73) Lymphocytes (%) (Auto) 22 % (24-48) Monocytes (%) (Auto) 6 % (0-9) Eosinophils (%) (Auto) 1 % (0-3) Basophils (%) (Auto) 1 % (0-3) Neutrophils # (Auto) 5.1 x10^3/uL (1.8-7.7) Lymphocytes # (Auto) 1.6 x10^3/uL (1.0-4.8) Monocytes # (Auto) 0.4 x10^3/uL (0.0-1.1) Eosinophils # (Auto) 0.1 x10^3/uL (0.0-0.7) Basophils # (Auto) 0.1 x10^3/uL (0.0-0.2) Sodium Level 139 mmol/L (136-145) Potassium Level 5.1 mmol/L (3.5-5.1) Chloride Level 101 mmol/L (98-107) Carbon Dioxide Level 20 mmol/L (21-32) Anion Gap 18 (6-14) Blood Urea Nitrogen 56 mg/dL (7-20) Creatinine 13.1 mg/dL (0.6-1.0) Estimated GFR (Cockcroft-Gault) 3.3 Glucose Level 86 mg/dL (70-99) Calcium Level 6.5 mg/dL (8.5-10.1) Phosphorus Level 12.5 mg/dL (2.6-4.7) Troponin I Quantitative < 0.017 ng/mL (0.000-0.055) Albumin 1.3 g/dL (3.4-5.0) Review All relevant outside records, renal labs, imaging studies, telemetry/EKG's were reviewed. Images Images CTA chest dated 08/09/2020. No comparison available. CLINICAL INDICATION: Chest pain and shortness of breath. Covid 19. TECHNIQUE: Contiguous axial imaging the chest performed following the intravenous administration of 75 cc Omnipaque 350. Study was performed as dedicated PE protocol. Thin cut coronal MIPS 3-D reconstruction. One or more of the following individualized dose reduction techniques were utilized for this examination: 1. Automated exposure control 2. Adjustment of the mA and/or kV according to patient size 3. Use of iterative reconstruction technique. FINDINGS: Contrast bolus is adequate. No evidence of central, lobar or segmental pulmonary embolus. Subsegmental branches are not well evaluated based on technique. Evaluation of the ascending aorta is limited due to motion artifact. Heart size is upper limits of normal. No pericardial effusion. No mediastinal, hilar or axillary lymphadenopathy. Thyroid gland is unremarkable. Central airways are patent. There is some patchy groundglass opacity throughout both lungs, basilar predominant. No pleural effusion. No pneumothorax. Images of the upper abdomen show small amount of ascites. There are some wedge shaped defects within the spleen that are of uncertain etiology. Evidence of prior gastric bypass. Gallbladder surgically absent. Bone windows show no acute findings. Multilevel spondylosis. IMPRESSION: 1. No evidence of central, lobar or segmental pulmonary embolus. 2. There are some wedge-shaped defect within the spleen that are suspicious for small splenic infarcts. 3. The ascending aorta is not well evaluated due to motion artifact. There is no significant aneurysm or pericardial effusion. 4. Patchy groundglass opacity throughout both lungs, nonspecific but possibly related to early Covid 19 pneumonitis. 5. Small amount of ascites. YOUNG GOLDBERG MD Aug 10, 2020 09:17
[2020-08-10 11:00] VITALS: BP_SYST 72; BP_SYST 82; BP_DIAS 34
[2020-08-10] MEDS: oxyCODONE IR 5 MG TABLET PO PRN (11:24)
[2020-08-10] MEDS ORDERED: ONDANSETRON ODT 4 MG TAB.RAPDIS. PO PRN (11:45)
[2020-08-10 12:21] VITALS: BP 93/37
[2020-08-10] MEDS ORDERED: MIDODRINE 5 MG TABLET PO SCH (13:00)
--- NOTE | 2020-08-10 13:36 | PDOC ---
[employer] PROGRESS NOTE Date of Service DOS: DATE: 08/10/20 TIME: 13:29 Chief Complaint Chief Complaint A/P: Chest pain - negative for PE, will trend troponins. Could be bronchitis vs GI related, though she notes thorough work-up recently Diabetes mellitus - A1c > [address] on basal bolus plus regimen while she is inpatient. End-stage renal disease, on peritoneal dialysis - consult nephrology for management. Transplant deferred due to A1C > 8 Chronic nausea and vomiting - with gastroparesis likely secondary to combination of diabetes and chronic opioid use. Recurrent falls - will have PT assess for gait disorder Morbid obesity with history of Ivett-en-Y - successfully lost weight, stable now Anemia of chronic renal insufficiency. Severe protein calorie malnutrition - dietitian to see H/o COVID19 from PCR lab test on 06/16/2020 - s/p treatment FEN - Renal ADA diet PPX - heparin CODE - DNR/DNI Dispo - inpatient for above History of Present Illness History of Present Illness Ms Arteaga is a 30 yo F w/ PMHx gastroparesis, uncontrolled DM2, narcotic dependency, end-stage renal disease on PD, bipolar MDD, chronic pain, PFO, PIZARRO, anemia, asthma, morbid obesity s/p ivett-en-y gastric bypass in 2018, port-a-cath in place who presented to the ER with weakness and chest pain. She c/o weakness and nausea with shortness of breath. Patient states she has not been eating or drinking very well. Patient denies vomiting, chest pain, shortness of air, dizziness, headache, diarrhea, vision changes, numbness or tingling, focal weakness. She notes substernal chest pain and trouble breathing since 08/09/20 in the morning. Patient described the pain as substernal radiates to her back and describes it as an elephant sitting on her chest. She notes on further review this has been progressively worsening over the past 6 weeks. She tell me she thinks this is due to COVID 19 She has been admitted to the hospital multiple times over the past few months, the end of May was for COVID 19 treatment (she had been hospitalized in May twice prior for falls and confusion). After COVID 19 treatment she notes she was hospitalized for at least [address] [facility] for respiratory distress and has also been to [facility] ([facility], later [facility]). She notes she had an EGD there very recently after c/o chest pain, she does not recall the day this was performed, but notes no anastomic ulcer was reported and she was started on scopolamine patch and elavil qhs for her pain and nausea. EKG appears Sinus Rhythm and no STEMI Chest radiograph with possible linear scarring at left base, poor inspiration. Due to her pain radiating to her back a CTPA was performed with no evidence of central, lobar or segmental pulmonary embolus, wedge-shaped defect within the spleen consistent with splenic infarcts, small ascites and patchy groundglass opacity throughout both lungs. ABG with pH 7.34, PCO2 32, PO2 88. Troponin 0, WBC 11.3, Hb 11.6, platelets 278, NA 133, K4.3, BUN 51, CR 12.3, glucose 319, BNP 3609, albumin 1.8, calcium 6.9. Admitted for further treatment. 08/10: Patient seen and evaluated. Troponins remain undetectable. Appreciate nephrology recommendations on PD. Per patient, when visited by cardiology CLOTH CLASSER this morning there were no plans for cardiac intervention. Patient feels comfortable discharging today to continue home peritoneal dialysis. Recommend follow-up with PCP. She notes upcoming stress test outpatient. >30 minutes spent managing discharge this patient. Vitals/I&O Vitals/I&O: Vital Signs Date Time Temp Pulse Resp B/P (MAP) Pulse Ox O2 Delivery O2 Flow Rate FiO2 08/10/20 12:23 98 Room Air 08/10/20 12:21 97 93/37 08/10/20 07:00 98.3 16 98.3 I & O 08/09/20 08/09/20 08/10/20 15:00 23:00 07:00 Intake Total 200 ml 200 ml Balance 200 ml 200 ml Physical Exam General: Alert, Oriented X3, Cooperative, No acute distress Lungs: Clear Abdomen: Normal bowel sounds, Soft, No tenderness, No masses, Other (PD catheter clean, dry intact) Extremities: No clubbing, No cyanosis, Normal pulses Skin: No rashes, No breakdown Labs Labs: Laboratory Tests Test 08/09/20 14:11 08/09/20 15:15 08/09/20 17:43 08/09/20 19:30 White Blood Count 11.3 x10^3/uL (4.0-11.0) Red Blood Count 3.90 x10^6/uL (3.50-5.40) Hemoglobin 11.6 g/dL (12.0-15.5) Hematocrit 35.2 % (36.0-47.0) Mean Corpuscular Volume 90 fL (79-100) Mean Corpuscular Hemoglobin 30 pg (25-35) Mean Corpuscular Hemoglobin Concent 33 g/dL (31-37) Red Cell Distribution Width 14.6 % (11.5-14.5) Platelet Count 278 x10^3/uL (140-400) Neutrophils (%) (Auto) 86 % (31-73) Lymphocytes (%) (Auto) 9 % (24-48) Monocytes (%) (Auto) 5 % (0-9) Eosinophils (%) (Auto) 0 % (0-3) Basophils (%) (Auto) 0 % (0-3) Neutrophils # (Auto) 9.7 x10^3/uL (1.8-7.7) Lymphocytes # (Auto) 1.0 x10^3/uL (1.0-4.8) Monocytes # (Auto) 0.5 x10^3/uL (0.0-1.1) Eosinophils # (Auto) 0.0 x10^3/uL (0.0-0.7) Basophils # (Auto) 0.0 x10^3/uL (0.0-0.2) Segmented Neutrophils % 84 % (35-66) Band Neutrophils % 1 % (0-9) Lymphocytes % 11 % (24-48) Monocytes % 3 % (0-10) Metamyelocytes % 1 % (0-0) Platelet Estimate Adequate (ADEQUATE) Large Platelets Present Sodium Level 133 mmol/L (136-145) Potassium Level 4.3 mmol/L (3.5-5.1) Chloride Level 94 mmol/L (98-107) Carbon Dioxide Level 23 mmol/L (21-32) Anion Gap 16 (6-14) Blood Urea Nitrogen 51 mg/dL (7-20) Creatinine 12.3 mg/dL (0.6-1.0) Estimated GFR (Cockcroft-Gault) 3.6 BUN/Creatinine Ratio 4 (6-20) Glucose Level 319 mg/dL (70-99) Calcium Level 6.9 mg/dL (8.5-10.1) Magnesium Level 2.5 mg/dL (1.8-2.4) Total Bilirubin 0.4 mg/dL (0.2-1.0) Aspartate Amino Transf (AST/SGOT) 14 U/L (15-37) Alanine Aminotransferase (ALT/SGPT) 30 U/L (14-59) Alkaline Phosphatase 142 U/L (46-116) Troponin I Quantitative < 0.017 ng/mL (0.000-0.055) < 0.017 ng/mL (0.000-0.055) < 0.017 ng/mL (0.000-0.055) FP-Kvd-[id number]-Type Natriuretic Peptide 3609 pg/mL (0-124) Total Protein 6.2 g/dL (6.4-8.2) Albumin 1.8 g/dL (3.4-5.0) Albumin/Globulin Ratio 0.4 (1.0-1.7) Lipase 125 U/L (73-393) Acetone Level Neg (NEG) O2 Saturation 95 % (92-99) Arterial Blood pH 7.34 (7.35-7.45) Arterial Blood pCO2 at Patient Temp 32 mmHg (35-46) Arterial Blood pO2 at Patient Temp 88 mmHg (85-108) Arterial Blood HCO3 17 mmol/L (21-28) Arterial Blood Base Excess -8 mmol/L (-3-3) FiO2 21 Vitamin B12 Level 438 pg/mL (247-911) 25-Hydroxy Vitamin D Total 15.4 ng/mL (30-100) Test 08/09/20 20:26 08/10/20 07:46 08/10/20 08:21 08/10/20 11:55 Glucose (Fingerstick) 143 mg/dL (70-99) 83 mg/dL (70-99) 123 mg/dL (70-99) White Blood Count 7.2 x10^3/uL (4.0-11.0) Red Blood Count 2.84 x10^6/uL (3.50-5.40) Hemoglobin 8.9 g/dL (12.0-15.5) Hematocrit 25.7 % (36.0-47.0) Mean Corpuscular Volume 90 fL (79-100) Mean Corpuscular Hemoglobin 31 pg (25-35) Mean Corpuscular Hemoglobin Concent 35 g/dL (31-37) Red Cell Distribution Width 14.3 % (11.5-14.5) Platelet Count 221 x10^3/uL (140-400) Neutrophils (%) (Auto) 71 % (31-73) Lymphocytes (%) (Auto) 22 % (24-48) Monocytes (%) (Auto) 6 % (0-9) Eosinophils (%) (Auto) 1 % (0-3) Basophils (%) (Auto) 1 % (0-3) Neutrophils # (Auto) 5.1 x10^3/uL (1.8-7.7) Lymphocytes # (Auto) 1.6 x10^3/uL (1.0-4.8) Monocytes # (Auto) 0.4 x10^3/uL (0.0-1.1) Eosinophils # (Auto) 0.1 x10^3/uL (0.0-0.7) Basophils # (Auto) 0.1 x10^3/uL (0.0-0.2) Sodium Level 139 mmol/L (136-145) Potassium Level 5.1 mmol/L (3.5-5.1) Chloride Level 101 mmol/L (98-107) Carbon Dioxide Level 20 mmol/L (21-32) Anion Gap 18 (6-14) Blood Urea Nitrogen 56 mg/dL (7-20) Creatinine 13.1 mg/dL (0.6-1.0) Estimated GFR (Cockcroft-Gault) 3.3 Glucose Level 86 mg/dL (70-99) Calcium Level 6.5 mg/dL (8.5-10.1) Phosphorus Level 12.5 mg/dL (2.6-4.7) Troponin I Quantitative < 0.017 ng/mL (0.000-0.055) Albumin 1.3 g/dL (3.4-5.0) Assessment and Plan Assessmemt and Plan Problems Medical Problems: (1) Chest pain Status: Acute (2) ESRD (end stage renal disease) Status: Acute (3) Hyperglycemia Status: Acute (4) Splenic infarction Status: Acute Comment Review of Relevant I have reviewed the following items allie (where applicable) has been applied. Medications: Current Medications Medications (Trade) Dose Ordered Sig/Liana Route PRN Reason Start Time Stop Time Status Last Admin Dose Admin Sodium Chloride 1,000 ml @ 1,000 mls/hr 1X ONCE IV 08/09/20 14:00 08/09/20 14:59 DC 08/09/20 14:25 Calcium Chloride (Calcium Chloride) 1,000 mg 1X ONCE IV 08/09/20 15:00 08/09/20 15:01 DC 08/09/20 15:14 Ondansetron HCl (Zofran) 4 mg 1X ONCE IVP 08/09/20 15:30 08/09/20 15:31 DC 08/09/20 15:25 Iohexol (Omnipaque 350 Mg/ml) 75 ml 1X ONCE IV 08/09/20 15:45 08/09/20 15:46 DC 08/09/20 16:01 Morphine Sulfate (Morphine Sulfate) 4 mg 1X ONCE IV 08/09/20 16:30 08/09/20 16:33 DC 08/09/20 19:06 Metoclopramide HCl (Reglan Vial) 10 mg 1X ONCE IVP 08/09/20 16:30 08/09/20 16:33 DC 08/09/20 16:47 Midodrine (Proamatine) 5 mg 1X STAT PO 08/09/20 17:03 08/09/20 17:07 DC 08/09/20 17:37 Ondansetron HCl (Zofran) 4 mg PRN Q8HRS PRN IV NAUSEA/VOMITING 08/09/20 17:45 08/11/20 17:44 08/10/20 11:24 Calcium Acetate (Phoslo) 1,334 mg TIDWMEALS PO 08/10/20 08:00 08/10/20 12:21 Lamotrigine (LaMICtal) 50 mg DAILY08 PO 08/10/20 08:00 08/10/20 08:40 Lamotrigine (LaMICtal) 100 mg HS PO 08/09/20 21:00 08/09/20 21:19 Metoprolol Tartrate (Lopressor) 12.5 mg BID PO 08/09/20 21:00 08/09/20 21:17 Pantoprazole Sodium (Protonix) 40 mg BIDBFRMEAL PO 08/10/20 07:30 08/10/20 08:40 Thiamine Mononitrate (Vitamin B-1) 100 mg DAILY PO 08/10/20 09:00 08/10/20 12:21 Amitriptyline HCl (Elavil) 50 mg QHS PO 08/09/20 21:00 08/09/20 21:31 Ascorbic Acid (Vitamin C) 500 mg BID PO 08/10/20 09:00 08/10/20 12:21 Vitamin D (Vitamin D3) 1,000 unit BID PO 08/10/20 09:00 08/10/20 12:21 Oxycodone HCl (Roxicodone) 5 mg PRN Q4HRS PRN PO PAIN 08/09/20 21:00 08/10/20 11:24 Atorvastatin Calcium (Lipitor) 80 mg QHS PO 08/09/20 21:00 08/09/20 21:31 Heparin Sodium (Porcine) (Heparin Sodium) 5,000 unit Q8HRS SQ 08/09/20 22:00 08/10/20 04:59 Midodrine (Proamatine) 7.5 mg [id number] PO 08/10/20 13:00 08/10/20 12:21 Justifications for Admission Other Justification Falls DEJON CASE MD Aug 10, 2020 13:36
--- NOTE | 2020-08-10 14:40 | PDOC3 ---
Discharge Summary Visit Information Date of Admission: Aug 09, 2020 Date of Discharge: Aug 10, 2020 Final Diagnosis Problems Medical Problems: (1) Chest pain Status: Acute (2) ESRD (end stage renal disease) Status: Acute (3) Hyperglycemia Status: Acute (4) Splenic infarction Status: Acute Brief Hospital Course Allergies Allergies Coded Allergies Type Severity Reaction Last Updated Verified lurasidone Allergy Severe 06/30/19 Yes zolpidem Allergy Intermediate BLISTERS AND HIVES 03/19/20 Yes adhesive tape Adverse Reaction Intermediate Rash 03/19/20 Yes Vital Signs Vital Signs Date Time Temp Pulse Resp B/P (MAP) Pulse Ox O2 Delivery O2 Flow Rate FiO2 08/10/20 12:23 98 Room Air 08/10/20 12:21 97 93/37 08/10/20 11:00 98.3 18 98.3 Lab Results Laboratory Tests Test 08/09/20 14:11 08/09/20 15:15 08/09/20 17:43 08/09/20 19:30 White Blood Count 11.3 x10^3/uL (4.0-11.0) Red Blood Count 3.90 x10^6/uL (3.50-5.40) Hemoglobin 11.6 g/dL (12.0-15.5) Hematocrit 35.2 % (36.0-47.0) Mean Corpuscular Volume 90 fL (79-100) Mean Corpuscular Hemoglobin 30 pg (25-35) Mean Corpuscular Hemoglobin Concent 33 g/dL (31-37) Red Cell Distribution Width 14.6 % (11.5-14.5) Platelet Count 278 x10^3/uL (140-400) Neutrophils (%) (Auto) 86 % (31-73) Lymphocytes (%) (Auto) 9 % (24-48) Monocytes (%) (Auto) 5 % (0-9) Eosinophils (%) (Auto) 0 % (0-3) Basophils (%) (Auto) 0 % (0-3) Neutrophils # (Auto) 9.7 x10^3/uL (1.8-7.7) Lymphocytes # (Auto) 1.0 x10^3/uL (1.0-4.8) Monocytes # (Auto) 0.5 x10^3/uL (0.0-1.1) Eosinophils # (Auto) 0.0 x10^3/uL (0.0-0.7) Basophils # (Auto) 0.0 x10^3/uL (0.0-0.2) Segmented Neutrophils % 84 % (35-66) Band Neutrophils % 1 % (0-9) Lymphocytes % 11 % (24-48) Monocytes % 3 % (0-10) Metamyelocytes % 1 % (0-0) Platelet Estimate Adequate (ADEQUATE) Large Platelets Present Sodium Level 133 mmol/L (136-145) Potassium Level 4.3 mmol/L (3.5-5.1) Chloride Level 94 mmol/L (98-107) Carbon Dioxide Level 23 mmol/L (21-32) Anion Gap 16 (6-14) Blood Urea Nitrogen 51 mg/dL (7-20) Creatinine 12.3 mg/dL (0.6-1.0) Estimated GFR (Cockcroft-Gault) 3.6 BUN/Creatinine Ratio 4 (6-20) Glucose Level 319 mg/dL (70-99) Calcium Level 6.9 mg/dL (8.5-10.1) Magnesium Level 2.5 mg/dL (1.8-2.4) Total Bilirubin 0.4 mg/dL (0.2-1.0) Aspartate Amino Transf (AST/SGOT) 14 U/L (15-37) Alanine Aminotransferase (ALT/SGPT) 30 U/L (14-59) Alkaline Phosphatase 142 U/L (46-116) Troponin I Quantitative < 0.017 ng/mL (0.000-0.055) < 0.017 ng/mL (0.000-0.055) < 0.017 ng/mL (0.000-0.055) [id number]-[id number]-Type Natriuretic Peptide 3609 pg/mL (0-124) Total Protein 6.2 g/dL (6.4-8.2) Albumin 1.8 g/dL (3.4-5.0) Albumin/Globulin Ratio 0.4 (1.0-1.7) Lipase 125 U/L (73-393) Acetone Level Neg (NEG) O2 Saturation 95 % (92-99) Arterial Blood pH 7.34 (7.35-7.45) Arterial Blood pCO2 at Patient Temp 32 mmHg (35-46) Arterial Blood pO2 at Patient Temp 88 mmHg (85-108) Arterial Blood HCO3 17 mmol/L (21-28) Arterial Blood Base Excess -8 mmol/L (-3-3) FiO2 21 Vitamin B12 Level 438 pg/mL (247-911) 25-Hydroxy Vitamin D Total 15.4 ng/mL (30-100) Test 08/09/20 20:26 08/10/20 07:46 08/10/20 08:21 08/10/20 11:55 Glucose (Fingerstick) 143 mg/dL (70-99) 83 mg/dL (70-99) 123 mg/dL (70-99) White Blood Count 7.2 x10^3/uL (4.0-11.0) Red Blood Count 2.84 x10^6/uL (3.50-5.40) Hemoglobin 8.9 g/dL (12.0-15.5) Hematocrit 25.7 % (36.0-47.0) Mean Corpuscular Volume 90 fL (79-100) Mean Corpuscular Hemoglobin 31 pg (25-35) Mean Corpuscular Hemoglobin Concent 35 g/dL (31-37) Red Cell Distribution Width 14.3 % (11.5-14.5) Platelet Count 221 x10^3/uL (140-400) Neutrophils (%) (Auto) 71 % (31-73) Lymphocytes (%) (Auto) 22 % (24-48) Monocytes (%) (Auto) 6 % (0-9) Eosinophils (%) (Auto) 1 % (0-3) Basophils (%) (Auto) 1 % (0-3) Neutrophils # (Auto) 5.1 x10^3/uL (1.8-7.7) Lymphocytes # (Auto) 1.6 x10^3/uL (1.0-4.8) Monocytes # (Auto) 0.4 x10^3/uL (0.0-1.1) Eosinophils # (Auto) 0.1 x10^3/uL (0.0-0.7) Basophils # (Auto) 0.1 x10^3/uL (0.0-0.2) Sodium Level 139 mmol/L (136-145) Potassium Level 5.1 mmol/L (3.5-5.1) Chloride Level 101 mmol/L (98-107) Carbon Dioxide Level 20 mmol/L (21-32) Anion Gap 18 (6-14) Blood Urea Nitrogen 56 mg/dL (7-20) Creatinine 13.1 mg/dL (0.6-1.0) Estimated GFR (Cockcroft-Gault) 3.3 Glucose Level 86 mg/dL (70-99) Calcium Level 6.5 mg/dL (8.5-10.1) Phosphorus Level 12.5 mg/dL (2.6-4.7) Troponin I Quantitative < 0.017 ng/mL (0.000-0.055) Albumin 1.3 g/dL (3.4-5.0) Laboratory Tests Test 08/09/20 15:15 08/09/20 17:43 08/09/20 19:30 08/09/20 20:26 O2 Saturation 95 % (92-99) Arterial Blood pH 7.34 (7.35-7.45) Arterial Blood pCO2 at Patient Temp 32 mmHg (35-46) Arterial Blood pO2 at Patient Temp 88 mmHg (85-108) Arterial Blood HCO3 17 mmol/L (21-28) Arterial Blood Base Excess -8 mmol/L (-3-3) FiO2 21 Troponin I Quantitative < 0.017 ng/mL (0.000-0.055) < 0.017 ng/mL (0.000-0.055) Vitamin B12 Level 438 pg/mL (247-911) 25-Hydroxy Vitamin D Total 15.4 ng/mL (30-100) Glucose (Fingerstick) 143 mg/dL (70-99) Test 08/10/20 07:46 08/10/20 08:21 08/10/20 11:55 White Blood Count 7.2 x10^3/uL (4.0-11.0) Red Blood Count 2.84 x10^6/uL (3.50-5.40) Hemoglobin 8.9 g/dL (12.0-15.5) Hematocrit 25.7 % (36.0-47.0) Mean Corpuscular Volume 90 fL (79-100) Mean Corpuscular Hemoglobin 31 pg (25-35) Mean Corpuscular Hemoglobin Concent 35 g/dL (31-37) Red Cell Distribution Width 14.3 % (11.5-14.5) Platelet Count 221 x10^3/uL (140-400) Neutrophils (%) (Auto) 71 % (31-73) Lymphocytes (%) (Auto) 22 % (24-48) Monocytes (%) (Auto) 6 % (0-9) Eosinophils (%) (Auto) 1 % (0-3) Basophils (%) (Auto) 1 % (0-3) Neutrophils # (Auto) 5.1 x10^3/uL (1.8-7.7) Lymphocytes # (Auto) 1.6 x10^3/uL (1.0-4.8) Monocytes # (Auto) 0.4 x10^3/uL (0.0-1.1) Eosinophils # (Auto) 0.1 x10^3/uL (0.0-0.7) Basophils # (Auto) 0.1 x10^3/uL (0.0-0.2) Sodium Level 139 mmol/L (136-145) Potassium Level 5.1 mmol/L (3.5-5.1) Chloride Level 101 mmol/L (98-107) Carbon Dioxide Level 20 mmol/L (21-32) Anion Gap 18 (6-14) Blood Urea Nitrogen 56 mg/dL (7-20) Creatinine 13.1 mg/dL (0.6-1.0) Estimated GFR (Cockcroft-Gault) 3.3 Glucose Level 86 mg/dL (70-99) Calcium Level 6.5 mg/dL (8.5-10.1) Phosphorus Level 12.5 mg/dL (2.6-4.7) Troponin I Quantitative < 0.017 ng/mL (0.000-0.055) Albumin 1.3 g/dL (3.4-5.0) Glucose (Fingerstick) 83 mg/dL (70-99) 123 mg/dL (70-99) Brief Hospital Course Ms. Arteaga is a 30 old female with past medical history of incisional disease on peritoneal dialysis at home, who presented with chest pain. Troponins were trended and were negative x4. Consultations placed to nephrology and cardiology. There was no no urgent need for dialysis. No plans for cardiac intervention. Will discharge patient home to continue home PD. Discharge Information Condition at Discharge: Stable Follow Up: Weeks Disposition/Orders: D/C to Home Scheduled Amitriptyline Hcl (Amitriptyline Hcl) 50 Mg Tablet, 1 TAB PO QHS for rest/sleep, #30 Ref 1 (Reported) Entered as Reported by: JOSE E ARCHIBALD RN on 06/09/202222 Last Action: Converted on 08/09/202042 by ROSS BRUNNER MD Ascorbic Acid (Vitamin C) 500 Mg Capsule.er, 1 CAP PO BID for covid 19 for 30 Days, #60 Ref 0 Prescribed by: LOBO LUNDBERG MD on 06/16/20 1157 Last Action: Converted on 08/09/202042 by ROSS BRUNNER MD Calcium Acetate (Phoslo) 667 Mg Capsule, 1,334 MG PO TIDWMEALS for DIALYSIS PATIENT, (Reported) Entered as Reported by: JING MORRISON on 05/09/16 1235 Last Action: Continued on 08/09/202042 by ROSS BRUNNER MD Cholecalciferol (Vitamin D3) (Vitamin D3) 1,250 Mcg Capsule, 1,250 MCG PO BID for supplement for 30 Days, #60 Prescribed by: LOBO LUNDBERG MD on 06/16/201156 Last Action: Converted on 08/09/202042 by ROSS BRUNNER MD Clonazepam (Clonazepam) 0.5 Mg Tablet, 0.5 MG PO BID for calm brain and nerves, (Reported) Entered as Reported by: JOSE E ARCHIBALD RN on 06/09/202222 Cyclobenzaprine Hcl (Cyclobenzaprine Hcl) 10 Mg Tablet, 10 MG PO TID for muscle pain, (Reported) Entered as Reported by: JOSE E ARCHIBALD RN on 06/09/202222 Duloxetine Hcl (Cymbalta) 60 Mg Capsule.dr, 1 CAP PO DAILY for depression, #90 Ref 3 (Reported) Entered as Reported by: JOSE E ARCHIBALD RN on 06/09/202222 Gabapentin (Gabapentin ) 300 Mg Capsule, 300 MG PO TID for NEUROPATHY, (Reported) Entered as Reported by: HAMLET RAI on 06/26/17 0626 Lamotrigine (Lamictal) 25 Mg Tablet, 50 MG PO DAILY08 for bipolar, (Reported) Entered as Reported by: ROOSEVELT JOY on 05/26/201711 Last Action: Continued on 08/09/202042 by ROSS BRUNNER MD Lamotrigine (Lamictal) 100 Mg Tablet, 1 TAB PO HS for bipolar, #30 Ref 1 (R eported) Entered as Reported by: ROOSEVELT JOY on 05/26/201711 Last Action: Continued on 08/09/202042 by ROSS BRUNNER MD Linagliptin (Tradjenta) 5 Mg Tablet, 5 MG PO DAILY for TYPE 2 DIABETES, (Reported) Entered as Reported by: ROOSEVELT JOY on 05/26/20 1751 Metoprolol Tartrate (Metoprolol Tartrate) 25 Mg Tablet, 12.5 MG PO BID for tachycardia for 30 Days, #30 Prescribed by: LOBO LUNDBERG MD on 06/16/20 1514 Midodrine Hcl (Midodrine Hcl) 5 Mg Tablet, 7.5 MG PO [id number] for hypotension for 30 Days, #135 Prescribed by: LOBO LUNDBERG MD on 06/16/20 1514 Milk Thistle (Milk Thistle) 175 Mg Tablet, 175 MG PO HS for sleep, (Reported) Entered as Reported by: JOSE E ARCHIBALD RN on 06/09/202222 Multivitamin (Multiple Vitamins) 1 Each Tablet, 1 EACH PO DAILY for SUPPLEMENT, (Reported) Entered as Reported by: LARRY ISAAC on 03/19/20 1234 Olanzapine (Zyprexa) 7.5 Mg Tablet, 10 MG PO HS for BIPOLAR DISORDER TREATMENT, (Reported) Entered as Reported by: LARRY ISAAC on 03/19/20 1234 Pantoprazole Sodium (Pantoprazole Sodium ) 40 Mg Tablet.dr, 40 MG PO BIDBFRMEAL for GERD, (Reported) Entered as Reported by: JOSE E ARCHIBALD RN on 06/09/202222 Last Action: Continued on 08/09/202042 by ROSS BRUNNER MD Potassium Chloride (Klor-Con M20) 20 Meq Tab.er.prt, 20 MEQ PO DAILY for K replacement per patient, (Reported) Entered as Reported by: JOSE E ARCHIBALD RN on 06/09/202222 Prochlorperazine Maleate (Compro) 25 Mg Supp.rect, 25 MG RC Q12HR for nausea, (Reported) Entered as Reported by: YOGI WALKER RN on 06/20/20 0004 Last Action: Continued on 08/09/202042 by ROSS BRUNNER MD Rosuvastatin Calcium (Crestor) 40 Mg Tablet, 20 MG PO HS for FOR CHOLESTEROL, #30 Ref 0 (Reported) Entered as Reported by: LARRY ISAAC on 03/19/20 1234 Last Action: Converted on 08/09/202042 by ROSS BRUNNER MD Scopolamine (Transderm-Scop) 1 Each Patch.td72, 1 EACH TD Q3DAYS for NAUSEA , (Reported) Entered as Reported by: DELILAH DUKES on 06/27/19 1057 Last Action: Continued on 08/09/202042 by ROSS BRUNNER MD Thiamine Mononitrate (Vitamin B-1) 100 Mg Tablet, 1 TAB PO DAILY for supplement for 30 Days, #30 Ref 0 (Reported) Entered as Reported by: JOSE E ARCHIBALD RN on 06/09/202222 Last Action: Continued on 08/09/202042 by ROSS BRUNNER MD Turmeric Root Extract (Turmeric) 538 Mg Capsule, 538 MG PO TID for pain, (Reported) Entered as Reported by: JOSE E ARCHIBALD RN on 06/09/202222 Zinc Gluconate (Zinc) 50 Mg Tablet, 100 MG PO daily for supplement for 30 Days, #60 Prescribed by: LOBO LUNDBERG MD on 06/16/20 1157 Scheduled PRN Albuterol Sulfate (Proair Hfa Inhaler) 8.5 Gm Hfa.aer.ad, 1 PUFF INH PRN Q4HRS PRN for SHORTNESS OF BREATH, Ref 0 (Reported) Entered as Reported by: RADHA MILLS on 01/21/16 0751 Last Action: Continued on 08/09/202042 by ROSS BRUNNER MD Cholecalciferol (Vitamin D3) (Vitamin D3) 1,250 Mcg Capsule, 50,000 MCG PO WEEKLY PRN for mon, (Reported) Entered as Reported by: JOSE E ARCHIBALD RN on 06/09/202222 Ondansetron Hcl (Zofran) 4 Mg Tablet, 4 MG PO Q4HRS PRN for NAUSEA/VOMITING, (Reported) Entered as Reported by: JING MORRISON on 05/09/16 1235 Last Action: Converted on 08/09/202042 by ROSS BRUNNER MD Oxycodone Hcl (Oxycodone Hcl) 5 Mg Capsule, 5 MG PO PRN Q4HRS PRN for PAIN, Ref 0 (Reported) Entered as Reported by: ROOSEVELT JOY on 05/26/20 1710 Last Action: Converted on 08/09/202042 by ROSS BRUNNER MD Discontinued Medications Albuterol Sulfate (Albuterol Sulfate Neb Soln) 2.5 Mg/3 Ml Vial.neb, 2.5 MG NEB PRN 3-4XDAILY PRN for SHORTNESS OF BREATH, Ref 0 (Reported) Entered as Reported by: DELILAH DUKES on 06/27/19 1057 Linagliptin (Tradjenta) 5 Mg Tablet, 5 MG PO DAILY for TYPE 2 DIABETES, (Reported) Entered as Reported by: JOSE E ARCHIBALD RN on 06/09/20 2223 Metoprolol Tartrate (Metoprolol Tartrate) 25 Mg Tablet, 12.5 MG PO BID for HR for 30 Days, #60 Ref 1 (Reported) Entered as Reported by: MANJINDER RAI on 06/16/20 1449 Last Action: Continued on 08/09/202042 by ROSS BRUNNER MD Midodrine Hcl (Midodrine Hcl) 5 Mg Tablet, 7.5 MG PO TID for hypotension for 30 Days, #90 Ref 1 (Reported) Entered as Reported by: MANJINDER RAI on 06/16/20 1450 Last Action: Continued on 08/10/20 1139 by HERON BHATTI Justicifation of Admission Dx: Justifications for Admission: Justification of Admission Dx: Yes DEJON CASE MD Aug 10, 2020 14:40
--- NOTE | 2020-08-10 14:43 | PDOC2 ---
ROSIE ASHER MUSIC SOUND LIGHT TECHNICIAN 08/10/20 1443: CARDIAC CONSULT DATE OF CONSULT Date of Consult DATE: 08/10/20 TIME: 14:21 REASON FOR CONSULT Reason for Consult: Chest pain, REFERRING PHYSICIAN Referring Physician: Laverne SOURCE Source: Caregiver (spouse), Chart review, Patient HISTORY OF PRESENT ILLNESS HISTORY OF PRESENT ILLNESS This is a pleasant 30 yo female admitted for complains of chest pain. Reports this started about 2 days ago after being nauseated and vomiting. Reports as midchest pressure nonradidating and no associated palpitations nor SOA. She does have hx of frequent falls as well failing to use her ambulatory device and did fall early part of July due to loss of balance and no syncope. She has low BP and significant for hx of autonomic dysfunction, ESRD and orthostasis. She is being considered for renal transplant and has a stress test at [facility] Sunday next week part of her transplant workup. Presently she is comfortable and no chest pain. PAST MEDICAL HISTORY Past Medical History Cardiovascular: HTN, Hyperlipidemia, orthostasis, PFO Pulmonary: Asthma, Other (LYLA), recovered Covid-19 CENTRAL NERVOUS SYSTEM: Peripheral neuropathy, Seizure GI: Other (gastroparesis) Heme/Onc: Anemia NOS, Other (MDD), splenic laceration Hepatobiliary: Cholelithiasis, Other (PIZARRO) Psych: Anxiety, Depression Musculoskeletal: Osteoarthritis, falls Rheumatologic: No pertinent hx Infectious disease: No pertinent hx ENT: Other (retinopathy) Renal/: Chronic renal failure (ESRD), UTI Endocrine: Diabetes (2) Dermatology: No pertinent hx PAST SURGICAL HISTORY Past Surgical History Cholecystectomy, Hysterectomy, Other (gastric bypass; PD cath placement; LAV shint placement; Clive-en-y; aneta cath placement) FAMILY HISTORY Family History: Hypertension SOCIAL HISTORY Smoke: No ALCOHOL: none Drugs: None Lives: with Family CURRENT MEDICATIONS CURRENT MEDICATIONS Current Medications Medications (Trade) Dose Ordered Sig/Liana Route PRN Reason Start Time Stop Time Status Last Admin Dose Admin Calcium Chloride (Calcium Chloride) 1,000 mg 1X ONCE IV 08/09/20 15:00 08/09/20 15:01 DC 08/09/20 15:14 Ondansetron HCl (Zofran) 4 mg 1X ONCE IVP 08/09/20 15:30 08/09/20 15:31 DC 08/09/20 15:25 Iohexol (Omnipaque 350 Mg/ml) 75 ml 1X ONCE IV 08/09/20 15:45 08/09/20 15:46 DC 08/09/20 16:01 Morphine Sulfate (Morphine Sulfate) 4 mg 1X ONCE IV 08/09/20 16:30 08/09/20 16:33 DC 08/09/20 19:06 Metoclopramide HCl (Reglan Vial) 10 mg 1X ONCE IVP 08/09/20 16:30 08/09/20 16:33 DC 08/09/20 16:47 Midodrine (Proamatine) 5 mg 1X STAT PO 08/09/20 17:03 08/09/20 17:07 DC 08/09/20 17:37 Ondansetron HCl (Zofran) 4 mg PRN Q8HRS PRN IV NAUSEA/VOMITING 08/09/20 17:45 08/11/20 17:44 08/10/20 11:24 Calcium Acetate (Phoslo) 1,334 mg TIDWMEALS PO 08/10/20 08:00 08/10/20 12:21 Lamotrigine (LaMICtal) 50 mg DAILY08 PO 08/10/20 08:00 08/10/20 08:40 Lamotrigine (LaMICtal) 100 mg HS PO 08/09/20 21:00 08/09/20 21:19 Metoprolol Tartrate (Lopressor) 12.5 mg BID PO 08/09/20 21:00 08/09/20 21:17 Pantoprazole Sodium (Protonix) 40 mg BIDBFRMEAL PO 08/10/20 07:30 08/10/20 08:40 Thiamine Mononitrate (Vitamin B-1) 100 mg DAILY PO 08/10/20 09:00 08/10/20 12:21 Amitriptyline HCl (Elavil) 50 mg QHS PO 08/09/20 21:00 08/09/20 21:31 Ascorbic Acid (Vitamin C) 500 mg BID PO 08/10/20 09:00 08/10/20 12:21 Vitamin D (Vitamin D3) 1,000 unit BID PO 08/10/20 09:00 08/10/20 12:21 Oxycodone HCl (Roxicodone) 5 mg PRN Q4HRS PRN PO PAIN 08/09/20 21:00 08/10/20 11:24 Atorvastatin Calcium (Lipitor) 80 mg QHS PO 08/09/20 21:00 08/09/20 21:31 Heparin Sodium (Porcine) (Heparin Sodium) 5,000 unit Q8HRS SQ 08/09/20 22:00 08/10/20 13:55 Midodrine (Proamatine) 7.5 mg [id number] PO 08/10/20 13:00 08/10/20 12:21 ALLERGIES ALLERGIES: Coded Allergies: lurasidone (Verified Allergy, Severe, 06/30/19) Rash, seizure (due to combination with other medications per patient-does not take any longer due to reaction) zolpidem (Verified Allergy, Intermediate, BLISTERS AND HIVES, 03/19/20) adhesive tape (Verified Adverse Reaction, Intermediate, Rash, 03/19/20) ROS Review of System 14 point ROS evaluated with pertinent positives noted per HPI PHYSICAL EXAM General: Alert, Oriented X3, Cooperative, No acute distress HEENT: Atraumatic, Mucous membr. moist/pink Lungs: Other (diminished bases) Heart: Regular rate (SR), Normal S1, Normal S2, No murmurs Abdomen: Soft, No tenderness Extremities: No cyanosis, No edema Skin: No breakdown, No significant lesion Neuro: Normal speech, Sensation intact Psych/Mental Status: Mental status NL, Mood NL MUSCULOSKELETAL: Full range of motion without pain VITALS/I&O VITALS/I&O: Vital Signs Date Time Temp Pulse Resp B/P (MAP) Pulse Ox O2 Delivery O2 Flow Rate FiO2 08/10/20 12:23 98 Room Air 08/10/20 12:21 97 93/37 08/10/20 11:00 98.3 18 98.3 I & O 08/09/20 08/09/20 08/10/20 15:00 23:00 07:00 Intake Total 200 ml 200 ml Balance 200 ml 200 ml LABS Lab: Laboratory Tests Test 08/09/20 15:15 08/09/20 17:43 08/09/20 19:30 08/09/20 20:26 O2 Saturation 95 % (92-99) Arterial Blood pH 7.34 (7.35-7.45) L Arterial Blood pCO2 at Patient Temp 32 mmHg (35-46) L Arterial Blood pO2 at Patient Temp 88 mmHg (85-108) Arterial Blood HCO3 17 mmol/L (21-28) L Arterial Blood Base Excess -8 mmol/L (-3-3) L FiO2 21 Troponin I Quantitative < 0.017 ng/mL (0.000-0.055) < 0.017 ng/mL (0.000-0.055) Vitamin B12 Level 438 pg/mL (247-911) 25-Hydroxy Vitamin D Total 15.4 ng/mL (30-100) L Glucose (Fingerstick) 143 mg/dL (70-99) H Test 08/10/20 07:46 08/10/20 08:21 08/10/20 11:55 White Blood Count 7.2 x10^3/uL (4.0-11.0) Red Blood Count 2.84 x10^6/uL (3.50-5.40) L Hemoglobin 8.9 g/dL (12.0-15.5) L Hematocrit 25.7 % (36.0-47.0) L Mean Corpuscular Volume 90 fL (79-100) Mean Corpuscular Hemoglobin 31 pg (25-35) Mean Corpuscular Hemoglobin Concent 35 g/dL (31-37) Red Cell Distribution Width 14.3 % (11.5-14.5) Platelet Count 221 x10^3/uL (140-400) Neutrophils (%) (Auto) 71 % (31-73) Lymphocytes (%) (Auto) 22 % (24-48) L Monocytes (%) (Auto) 6 % (0-9) Eosinophils (%) (Auto) 1 % (0-3) Basophils (%) (Auto) 1 % (0-3) Neutrophils # (Auto) 5.1 x10^3/uL (1.8-7.7) Lymphocytes # (Auto) 1.6 x10^3/uL (1.0-4.8) Monocytes # (Auto) 0.4 x10^3/uL (0.0-1.1) Eosinophils # (Auto) 0.1 x10^3/uL (0.0-0.7) Basophils # (Auto) 0.1 x10^3/uL (0.0-0.2) Sodium Level 139 mmol/L (136-145) Potassium Level 5.1 mmol/L (3.5-5.1) Chloride Level 101 mmol/L (98-107) Carbon Dioxide Level 20 mmol/L (21-32) L Anion Gap 18 (6-14) H Blood Urea Nitrogen 56 mg/dL (7-20) H Creatinine 13.1 mg/dL (0.6-1.0) H Estimated GFR (Cockcroft-Gault) 3.3 Glucose Level 86 mg/dL (70-99) Calcium Level 6.5 mg/dL (8.5-10.1) L Phosphorus Level 12.5 mg/dL (2.6-4.7) H Troponin I Quantitative < 0.017 ng/mL (0.000-0.055) Albumin 1.3 g/dL (3.4-5.0) L Glucose (Fingerstick) 83 mg/dL (70-99) 123 mg/dL (70-99) H Laboratory Tests 08/10/20 07:46 Laboratory Tests 08/10/20 07:46 ECHOCARDIOGRAM ECHOCARDIOGRAM <Conclusion> The left ventricular systolic function is normal and the ejection fraction is within normal range. The Ejection Fraction is 55-60%. There is normal LV segmental wall motion. DATE: 05/30/20 1341 ASSESSMENT/PLAN ASSESSMENT/PLAN 1. Atypical chest pain: suspect GI, noncardiac 2. Low BP and orthostasis due to autonomic dysregulation from neuropathy 3. Still has fall episodes not related to syncope but noncompliance to ambulatory device. 4. ESRD: on PD 5. DM2/HLP 6. Hx of Clive-en-y 7. Hx of splenic laceration r/t fall on 05/2020 (no surgery at that time): CT noted with splenic infarcts 8. Recovered Covid-19: +06/16/2020 9. Anemia of chronic disease 10. Severe hypoalbuminemia: per PCP Recommendations 1. Resume home metoprolol if BP is adequate (used for past tachycardia possibly PSVT). Resume home midodrine. 2. She is on transplant consideration at [facility] and due tor stress test on 08/19/2020 per transplant team 3. Secondary prevention measures. JUSTIN ARNETT MD 08/10/20 1648: ROSIE ASHER APRN Aug 10, 2020 14:43 JUSTIN ARNETT MD Aug 10, 2020 16:48
--- NOTE | 2020-08-10 15:38 | SNU/HH DC ---
DISCHARGE WITH HOME HEALTH DISCHARGE INFORMATION: Discharge Date: Aug 10, 2020 Final Diagnosis: Problems Medical Problems: (1) Chest pain Status: Acute (2) ESRD (end stage renal disease) Status: Acute (3) Hyperglycemia Status: Acute (4) Splenic infarction Status: Acute Condition on Discharge: Stable CODE STATUS: Code Status: Full HOME HEALTH: Face to Face: I certify this patient is under my care and that I, or a nurse practitioner or physician's legal executive assistant working with me, had a face to face encounter that meets the physician face to face encounter requirements with this patient on 08/10/20. Medical Complications: Other (ESRD on PD) Long Term For: Other: (Peritoneal Dialysis) RN For Eval/Treatment: Yes Pt Meets Homebound Status: Psychological condition POST DISCHARGE ORDERS: Activity Instructions for Disc: Activity as tolerated Weight Bearing Status after Di: As tolerated Bathing Instructions: Shower-keep dressing dry DIET AFTER DISCHARGE: Renal Wound/Incision Care: No wound care needed CHECKS AFTER DISCHARGE: Checks after discharge: Check blood press - daily, Check blood sugar, ac/hs, Check your Temp as needed, Weigh Yourself Daily TREATMENT/EQUIPMENT ORDERS: Adaptive Equipment Issued: Four wheeled walker CERTIFICATION STATEMENT: Certification Statement: Certification Statement: Based on the above finding, I certify that this patient is confined to the home and needs intermittent [facility] care, physical therapy and/or speech therapy, or continues to need occupational therapy.~ This patient is under my care, and I have initiated the establishment of the plan of care.~ This patient will be followed by myself or a community physician who will periodically review the plan of care. Home Meds Active Scripts Metoprolol Tartrate (METOPROLOL TARTRATE) 25 Mg Tablet, 12.5 MG PO BID for tachycardia for 30 Days, #30 TAB Prov:LOBO LUNDBERG MD 06/16/20 Midodrine Hcl (MIDODRINE HCL) 5 Mg Tablet, 7.5 MG PO [id number] for hypotension for 30 Days, #135 TAB Prov:LOBO LUNDBERG MD 06/16/20 Zinc Gluconate (ZINC) 50 Mg Tablet, 100 MG PO daily for supplement for 30 Days, #60 TAB Prov:LOBO LUNDBERG MD 06/16/20 Cholecalciferol (Vitamin D3) (Vitamin D3) 1,250 Mcg Capsule, 1250 MCG PO BID for supplement for 30 Days, #60 CAP Prov:LOBO LUNDBERG MD 06/16/20 Ascorbic Acid (VITAMIN C) 500 Mg Capsule.er, 1 CAP PO BID for covid 19 for 30 Days, #60 CAP 0 Refills Prov:LOBO LUNDBERG MD 06/16/20 Reported Medications Prochlorperazine Maleate (COMPRO) 25 Mg Supp.rect, 25 MG RC Q12HR for nausea, SUPP.RECT 06/20/20 Duloxetine Hcl (CYMBALTA) 60 Mg Capsule.dr, 1 CAP PO DAILY for depression, #90 CAP 3 Refills 06/09/20 Thiamine Mononitrate (VITAMIN B-1) 100 Mg Tablet, 1 TAB PO DAILY for supplement for 30 Days, #30 TAB 0 Refills 06/09/20 Cyclobenzaprine Hcl (CYCLOBENZAPRINE HCL) 10 Mg Tablet, 10 MG PO TID for muscle pain, TAB 06/09/20 Cholecalciferol (Vitamin D3) (Vitamin D3) 1,250 Mcg Capsule, 08143 MCG PO WEEKLY PRN for mon, CAP 06/09/20 Clonazepam (Clonazepam) 0.5 Mg Tablet, 0.5 MG PO BID for calm brain and nerves, TAB 06/09/20 Pantoprazole Sodium (PANTOPRAZOLE SODIUM ) 40 Mg Tablet.dr, 40 MG PO BIDBFRM EAL for GERD, TAB 06/09/20 Amitriptyline Hcl (AMITRIPTYLINE HCL) 50 Mg Tablet, 1 TAB PO QHS for rest/sleep, #30 TAB 1 Refill 06/09/20 Turmeric Root Extract (Turmeric) 538 Mg Capsule, 538 MG PO TID for pain, CAP 06/09/20 Milk Thistle (MILK THISTLE) 175 Mg Tablet, 175 MG PO HS for sleep, TAB 06/09/20 Potassium Chloride (KLOR-CON M20) 20 Meq Tab.er.prt, 20 MEQ PO DAILY for K replacement per patient, TAB.SR 06/09/20 Linagliptin (TRADJENTA) 5 Mg Tablet, 5 MG PO DAILY for TYPE 2 DIABETES, TAB 05/26/20 Lamotrigine (LAMICTAL) 100 Mg Tablet, 1 TAB PO HS for bipolar, #30 TAB 1 Refill 05/26/20 Lamotrigine (LAMICTAL) 25 Mg Tablet, 50 MG PO DAILY08 for bipolar, TAB 05/26/20 Oxycodone Hcl (OXYCODONE HCL) 5 Mg Capsule, 5 MG PO PRN Q4HRS PRN for PAIN, TAB 0 Refills 05/26/20 Rosuvastatin Calcium (CRESTOR) 40 Mg Tablet, 20 MG PO HS for FOR CHOLESTEROL, #30 TAB 0 Refills 03/19/20 Multivitamin (MULTIPLE VITAMINS) 1 Each Tablet, 1 EACH PO DAILY for SUPPLEMENT, TAB 03/19/20 Olanzapine (ZYPREXA) 7.5 Mg Tablet, 10 MG PO HS for BIPOLAR DISORDER TREATMENT, TAB 03/19/20 Scopolamine (TRANSDERM-SCOP) 1 Each Patch.td72, 1 EACH TD Q3DAYS for NAUSEA , PATCH 06/27/19 Gabapentin (GABAPENTIN ) 300 Mg Capsule, 300 MG PO TID for NEUROPATHY, CAP 06/26/17 Ondansetron Hcl (ZOFRAN) 4 Mg Tablet, 4 MG PO Q4HRS PRN for NAUSEA/VOMITING, TAB 05/09/16 Calcium Acetate (PHOSLO) 667 Mg Capsule, 1334 MG PO TIDWMEALS for DIALYSIS PATIENT, CAP 05/09/16 Albuterol Sulfate (PROAIR HFA INHALER) 8.5 Gm Hfa.aer.ad, 1 PUFF INH PRN Q4HRS PRN for SHORTNESS OF BREATH, INHALER 0 Refills 01/21/16 Discontinued Reported Medications Midodrine Hcl (MIDODRINE HCL) 5 Mg Tablet, 7.5 MG PO TID for hypotension for 30 Days, #90 TAB 1 Refill 06/16/20 Metoprolol Tartrate (METOPROLOL TARTRATE) 25 Mg Tablet, 12.5 MG PO BID for HR for 30 Days, #60 TAB 1 Refill 06/16/20 Linagliptin (TRADJENTA) 5 Mg Tablet, 5 MG PO DAILY for TYPE 2 DIABETES, TAB 06/09/20 Albuterol Sulfate (ALBUTEROL SULFATE NEB SOLN) 2.5 Mg/3 Ml Vial.neb, 2.5 MG NEB PRN 3-4XDAILY PRN for SHORTNESS OF BREATH, EACH 0 Refills 06/27/19 DEJON CASE MD Aug 10, 2020 15:38
[2020-08-12] MEDS ORDERED: SCOPOLAMINE 1.5MG PATCH. TD SCH (09:00)
== END 2020-08-10 15:56 | disposition home health service (06) | DRG 391 ==
LOC: ER 12:32 → 5 NORTH 17:23
PROVIDERS: ADMIT Internal Medicine; ATTEND Internal Medicine
DX: K21.9 Gastro-esophageal reflux disease without esophagitis (principal); N18.6 End stage renal disease; E43 Unspecified severe protein-calorie malnutrition; I12.0 Hypertensive chronic kidney disease with stage 5 chronic kidney disease or end stage renal disease; E66.01 Morbid (severe) obesity due to excess calories; Z66 Do not resuscitate; E11.65 Type 2 diabetes mellitus with hyperglycemia; Z86.16 Personal history of COVID-19; D73.5 Infarction of spleen; D63.1 Anemia in chronic kidney disease; E11.22 Type 2 diabetes mellitus with diabetic chronic kidney disease; E11.319 Type 2 diabetes mellitus with unspecified diabetic retinopathy without macular edema; E11.43 Type 2 diabetes mellitus with diabetic autonomic (poly)neuropathy; E78.5 Hyperlipidemia, unspecified; E11.42 Type 2 diabetes mellitus with diabetic polyneuropathy; J45.909 Unspecified asthma, uncomplicated; M47.9 Spondylosis, unspecified; F32.9 Major depressive disorder, single episode, unspecified; F41.9 Anxiety disorder, unspecified; G47.33 Obstructive sleep apnea (adult) (pediatric); I95.89 Other hypotension; E83.39 Other disorders of phosphorus metabolism; G89.29 Other chronic pain; M19.90 Unspecified osteoarthritis, unspecified site; Z99.2 Dependence on renal dialysis; Z79.891 Long term (current) use of opiate analgesic; Z82.49 Family history of ischemic heart disease and other diseases of the circulatory system; Z87.891 Personal history of nicotine dependence; Z90.49 Acquired absence of other specified parts of digestive tract; Z90.710 Acquired absence of both cervix and uterus; Z91.19 Patient's noncompliance with other medical treatment and regimen; Z91.81 History of falling; Z98.84 Bariatric surgery status; Z88.8 Allergy status to other drugs, medicaments and biological substances; Z68.30 Body mass index [BMI] 30.0-30.9, adult
CPT/HCPCS: 36415; 36600; 71045; 71275; 80053; 80069; 82010; 82306; 82607; 82805; 82962; 83690; 83735; 83880; 84484; 85007; 85025; 93005; 94760; 96361; 96374; 96375; 99285; J1644; J1815; J2270; J2405; J2765; J3490; J7030; Q9967; G0378